=== PATIENT | male | born 1970 | race African-American/Black ===

== ENCOUNTER 2017-01-22 12:43 | Inpatient (IN) | payer BC ==
[2017-01-22 18:39] VITALS: BMI 25.4
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
[2017-01-22] MEDS ORDERED: MAGNESIUM CITRATE 300 ML BOTTLE PO PRN (19:27)
[2017-01-22] MEDS ORDERED: MAG HYDROX/AL HYDROX/SIMETH 30 ML UNIT-DOSE CUP PO PRN (19:27)
[2017-01-22] MEDS ORDERED: MAGNESIUM HYDROX 2400MG/30ML ORAL SUSPENSION 30 ML CUP PO PRN (19:27)
[2017-01-22] MEDS ORDERED: LOPERAMIDE HCL 2 MG CAPSULE PO PRN (19:27)
[2017-01-22] MEDS ORDERED: ACETAMINOPHEN 325 MG TABLET (FP) PO PRN (19:27)
[2017-01-22] MEDS ORDERED: MENTHOL/PHENOL 1 EACH UD MM PRN (19:27)
[2017-01-22] MEDS: RANITIDINE HCL 150 MG TABLET (FP) PO SCH (22:02)
[2017-01-22] MEDS: P-EPHED 60MG/TRIPROLIDI 2.5MG TABLET PO PRN (22:02)
[2017-01-22] MEDS: guaiFENesin/D-METHORPHAN HB 10 ML UNIT-DOSE CUPS PO PRN (22:02)
[2017-01-22] MEDS: THIAMINE HCL 100 MG TABLET (FP) PO SCH (22:02)
[2017-01-22] MEDS: diphenhydrAMINE HCL 50 MG CAPSULE PO PRN (22:02)
[2017-01-22] MEDS: chlordiazePOXIDE HCL 25 MG CAPSULE PO SCH (22:02)
[2017-01-22 23:13] LABS: URINE APPEARANCE CLEAR; URINE BILIRUBIN NEGATIVE (NEGATIVE); URINE BLOOD NEGATIVE (NEGATIVE); URINE COLOR YELLOW; URINE GLUCOSE (UA) NEGATIVE (NEGATIVE); URINE KETONE TRACE (NEGATIVE); URINE LEUK ESTERASE NEGATIVE (NEGATIVE); URINE NITRITE NEGATIVE (NEGATIVE); URINE PROTEIN NEGATIVE (NEGATIVE); URINE UROBILINOGEN NEGATIVE E.U./dl (0.2-1.0)
[2017-01-22] MEDS: TRIAMCINOLONE ACET 0.1% OINT 15 GM TUBE TP SCH (23:56)
[2017-01-23] MEDS: chlordiazePOXIDE HCL 25 MG CAPSULE PO SCH ×4 (05:55→22:54)
[2017-01-23] MEDS: P-EPHED 60MG/TRIPROLIDI 2.5MG TABLET PO PRN ×3 (05:57→17:34)
[2017-01-23] MEDS: guaiFENesin/D-METHORPHAN HB 10 ML UNIT-DOSE CUPS PO PRN ×4 (05:57→23:05)
[2017-01-23] MEDS: TRIAMCINOLONE ACET 0.1% OINT 15 GM TUBE TP SCH ×4 (10:14→22:56)
[2017-01-23] MEDS: RANITIDINE HCL 150 MG TABLET (FP) PO SCH ×2 (10:14→22:54)
[2017-01-23] MEDS: PRENATAL VITAMINS W/ FOLIC ACID TABLET (FP) PO SCH (10:14)
[2017-01-23 10:32] LABS: MCH 31.7 pg (25.7-33.7); MCHC 33.7 g/dl (32.0-35.9); MEAN CELL VOLUME 94.1 fl (80-96); MEAN PLT VOLUME 10.5 fl (7.5-11.1); PLATELET COUNT 206 K/MM3 (134-434); RDW 14.5 % (11.9-15.9); WHITE BLOOD COUNT 8.3 K/mm3 (4.0-10.0)
[2017-01-23 10:48] LABS: ALBUMIN 4.1 g/dl (3.4-5.0); BILIRUBIN,TOTAL 0.6 mg/dL (0.2-1.0); CALCIUM 9.4 mg/dL (8.5-10.1); CREATININE 1.3 mg/dL (0.7-1.3); TOT PROT 7.3 g/dl (6.4-8.2)
[2017-01-23 11:03] LABS: HIV 1 & 2 AB NEGATIVE; HIV 1 AGp24 NEGATIVE
--- NOTE | 2017-01-23 11:06 | EKG ---
Test Reason : Blood Pressure : / mmHG Vent. Rate : 084 BPM Atrial Rate : 084 BPM P-R Int : 140 ms QRS Dur : 084 ms QT Int : 376 ms P-R-T Axes : 082 039 059 degrees QTc Int : 444 ms NORMAL SINUS RHYTHM POSSIBLE LEFT ATRIAL ENLARGEMENT BORDERLINE ECG NO PREVIOUS ECGS AVAILABLE Confirmed by MANUEL CHICAS, NEMESIO ([id number]) on 01/23/2017 11:06:34 AM Referred By: Adilson Jha Confirmed By:NEMESIO JACKSON MD
[2017-01-23] MEDS: chlordiazePOXIDE HCL 25 MG CAPSULE PO PRN (12:11)
--- NOTE | 2017-01-23 12:38 | PN ---
BHS Progress Note (SOAP) Subjective: interrupted sleep, sweats shakes, sorethroat, nasal congestion and cough Objective: 01/23/17 12:35 Vital Signs Temperature 98.4 F 01/23/17 09:59 Pulse Rate 93 H 01/23/17 09:59 Respiratory Rate 18 01/23/17 09:59 Blood Pressure 130/95 01/23/17 09:59 O2 Sat by Pulse Oximetry (%) Laboratory Tests 01/22/17 01/23/17 01/23/17 22:50 06:00 06:00 WBC 8.3 RBC 4.65 Hgb 14.7 Hct 43.7 MCV 94.1 MCHC 33.7 RDW 14.5 Plt Count 206 MPV 10.5 Sodium 140 Potassium 4.0 Chloride 101 Carbon Dioxide 29 Anion Gap 10 BUN 13 Creatinine 1.3 Creat Clearance w eGFR 59.70 Random Glucose 123 H D Calcium 9.4 Total Bilirubin 0.6 D AST 50 H D ALT 48 D Alkaline Phosphatase 64 Total Protein 7.3 Albumin 4.1 D Urine Color Yellow Urine Appearance Clear Urine pH 5.0 Ur Specific [place] 1.025 Urine Protein Negative Urine Glucose (UA) Negative Urine Ketones Trace H Urine Blood Negative Urine Nitrite Negative Urine Bilirubin Negative Urine Urobilinogen Negative Ur Leukocyte Esterase Negative RPR Titer HIV 1&2 Antibody Screen HIV P24 Antigen 01/23/17 01/23/17 06:00 06:00 WBC RBC Hgb Hct MCV MCHC RDW Plt Count MPV Sodium Potassium Chloride Carbon Dioxide Anion Gap BUN Creatinine Creat Clearance w eGFR Random Glucose Calcium Total Bilirubin AST ALT Alkaline Phosphatase Total Protein Albumin Urine Color Urine Appearance Urine pH Ur Specific [place] Urine Protein Urine Glucose (UA) Urine Ketones Urine Blood Urine Nitrite Urine Bilirubin Urine Urobilinogen Ur Leukocyte Esterase RPR Titer Nonreactive HIV 1&2 Antibody Screen Negative HIV P24 Antigen Negative pt aox3 lying in bed with nasal congestion and cough Assessment: 01/23/17 12:36 withdrawal sx' cough , nasal congestion and sore throat r/o viral synd Plan: cont. detox increase fluids cxr flonase motrin prn
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
--- NOTE | 2017-01-23 17:47 | PN ---
BHS Progress Note Note: cxr- negative
[2017-01-23] MEDS: THIAMINE HCL 100 MG TABLET (FP) PO SCH (22:54)
[2017-01-23] MEDS: QUEtiapine FUMARATE 400 MG TABLET PO SCH (22:54)
[2017-01-23] MEDS: FLUTICASONE PROP 0.05% 16 GM NASAL SPRAY NS SCH (22:55)
[2017-01-24] MEDS: chlordiazePOXIDE HCL 25 MG CAPSULE PO SCH ×3 (05:00→17:58)
[2017-01-24] MEDS: FLUTICASONE PROP 0.05% 16 GM NASAL SPRAY NS SCH ×2 (10:31→23:22)
[2017-01-24] MEDS: TRIAMCINOLONE ACET 0.1% OINT 15 GM TUBE TP SCH ×4 (10:31→23:22)
[2017-01-24] MEDS: RANITIDINE HCL 150 MG TABLET (FP) PO SCH ×2 (10:32→22:49)
[2017-01-24] MEDS: PRENATAL VITAMINS W/ FOLIC ACID TABLET (FP) PO SCH (10:32)
--- NOTE | 2017-01-24 11:11 | PN ---
S CIWA - CIWA Score Nausea/Vomitin-No Nausea/No Vomiting Muscle Tremors: 4-Moderate,w/Arms Extend Anxiety: 3 Agitation: 3 Paroxysmal Sweats: 3 Orientation: 0-Oriented Tacttile Disturbances: 0-None Auditory Disturbances: 0-None Visual Disturbances: 0-None Headache: 0-None Present CIWA-Ar Total Score: 13 BHS Progress Note (SOAP) Subjective: shakes sweats irritable tired Objective: 01/24/17 11:14 Vital Signs Temperature 98.1 F 01/24/17 10:14 Pulse Rate 110 H 01/24/17 10:14 Respiratory Rate 16 01/24/17 10:14 Blood Pressure 101/64 01/24/17 10:14 O2 Sat by Pulse Oximetry (%) Laboratory Tests 01/22/17 01/22/17 01/23/17 06:00 22:50 06:00 WBC 8.3 RBC 4.65 Hgb 14.7 Hct 43.7 MCV 94.1 MCHC 33.7 RDW 14.5 Plt Count 206 MPV 10.5 Sodium Potassium Chloride Carbon Dioxide Anion Gap BUN Creatinine Creat Clearance w eGFR Random Glucose Calcium Total Bilirubin AST ALT Alkaline Phosphatase Total Protein Albumin Urine Color Yellow Urine Appearance Clear Urine pH 5.0 Ur Specific [place] 1.025 Urine Protein Negative Urine Glucose (UA) Negative Urine Ketones Trace H Urine Blood Negative Urine Nitrite Negative Urine Bilirubin Negative Urine Urobilinogen Negative Ur Leukocyte Esterase Negative RPR Titer Hepatitis C Antibody <0.1 HIV 1&2 Antibody Screen HIV P24 Antigen 01/23/17 01/23/17 01/23/17 06:00 06:00 06:00 WBC RBC Hgb Hct MCV MCHC RDW Plt Count MPV Sodium 140 Potassium 4.0 Chloride 101 Carbon Dioxide 29 Anion Gap 10 BUN 13 Creatinine 1.3 Creat Clearance w eGFR 59.70 Random Glucose 123 H D Calcium 9.4 Total Bilirubin 0.6 D AST 50 H D ALT 48 D Alkaline Phosphatase 64 Total Protein 7.3 Albumin 4.1 D Urine Color Urine Appearance Urine pH Ur Specific [place] Urine Protein Urine Glucose (UA) Urine Ketones Urine Blood Urine Nitrite Urine Bilirubin Urine Urobilinogen Ur Leukocyte Esterase RPR Titer Nonreactive Hepatitis C Antibody HIV 1&2 Antibody Screen Negative HIV P24 Antigen Negative awake/alert ambulating no acute distress Assessment: 01/24/17 11:15 withdrawal sx Plan: continue detox increase fluids
[2017-01-24] MEDS: chlordiazePOXIDE HCL 25 MG CAPSULE PO PRN (13:32)
[2017-01-24] MEDS: guaiFENesin/D-METHORPHAN HB 10 ML UNIT-DOSE CUPS PO PRN (17:58)
[2017-01-24] MEDS: chlordiazePOXIDE 5 MG CAPSULE PO SCH (22:49)
[2017-01-24] MEDS: QUEtiapine FUMARATE 400 MG TABLET PO SCH (22:49)
[2017-01-24] MEDS: THIAMINE HCL 100 MG TABLET (FP) PO SCH (22:49)
[2017-01-25] MEDS: chlordiazePOXIDE 5 MG CAPSULE PO SCH ×3 (06:02→17:43)
[2017-01-25] MEDS: P-EPHED 60MG/TRIPROLIDI 2.5MG TABLET PO PRN (07:04)
--- NOTE | 2017-01-25 10:13 | PN ---
S Progress Note (SOAP) Subjective: ALERT,IRRITABLE,INTERRUPTED SLEEP Objective: 01/25/17 10:12 Vital Signs Temperature 97.7 F 01/25/17 09:45 Pulse Rate 95 H 01/25/17 09:45 Respiratory Rate 16 01/25/17 09:45 Blood Pressure 126/77 01/25/17 09:45 O2 Sat by Pulse Oximetry (%) Assessment: 01/25/17 10:12 WITHDRAWAL SYMPTOM Plan: CONTINUE DETOX,INITIAL GLUCOSE 123,BGM MONITORING ,DISCHARGE IN AM
[2017-01-25] MEDS: RANITIDINE HCL 150 MG TABLET (FP) PO SCH ×2 (10:15→23:29)
[2017-01-25] MEDS: TRIAMCINOLONE ACET 0.1% OINT 15 GM TUBE TP SCH ×4 (10:15→23:30)
[2017-01-25] MEDS: FLUTICASONE PROP 0.05% 16 GM NASAL SPRAY NS SCH ×2 (10:15→23:29)
[2017-01-25] MEDS: PRENATAL VITAMINS W/ FOLIC ACID TABLET (FP) PO SCH (10:16)
[2017-01-25] MEDS: chlordiazePOXIDE HCL 10 MG CAPSULE PO SCH (23:28)
[2017-01-25] MEDS: THIAMINE HCL 100 MG TABLET (FP) PO SCH (23:29)
[2017-01-25] MEDS: QUEtiapine FUMARATE 400 MG TABLET PO SCH (23:29)
[2017-01-26] MEDS: diphenhydrAMINE HCL 50 MG CAPSULE PO PRN ×2 (00:21→01:09)
[2017-01-26] MEDS: chlordiazePOXIDE HCL 10 MG CAPSULE PO SCH ×2 (06:51→10:29)
--- NOTE | 2017-01-26 08:08 | PN ---
S Progress Note (SOAP) Subjective: ALERT,NO COMPLAINT Objective: 01/26/17 08:07 Vital Signs Temperature 98.3 F 01/26/17 06:37 Pulse Rate 78 01/26/17 06:37 Respiratory Rate 18 01/26/17 06:37 Blood Pressure 97/65 01/26/17 06:37 O2 Sat by Pulse Oximetry (%) Assessment: 01/26/17 08:07 DETOX COMPLETED.NO WITHDRAWAL SYMPTOM Plan: DISCHARGE TODAY,FOLLOW UP WITH AFTER CARE PROGRAM ARRANGEMENT
--- NOTE | 2017-01-26 08:13 | DS ---
[facility] Detox Discharge Summary Admission Date: 01/22/17 Discharge Date: 01/26/17 - History Present History: Alcohol Dependence, Cannabis Dependence, Cocaine Dependence Additional Comments: FOLLOW UP WITH AFTER CARE PROGRAM ARRANGEMENT AND PMD FOR MEDICAL PROBLEM Pertinent Past History: GERD - Physical Exam Results Vital Signs: Vital Signs Temperature 98.3 F 01/26/17 06:37 Pulse Rate 78 01/26/17 06:37 Respiratory Rate 18 01/26/17 06:37 Blood Pressure 97/65 01/26/17 06:37 O2 Sat by Pulse Oximetry (%) Pertinent Admission Physical Exam Findings: WITHDRAWAL SYMPTOM - Treatment Hospital Course: Detox Protocol Followed, Detoxed Safely, Responded well, Discharged Condition Good, Rehab Referral Accepted Patient has Accepted a Rehab Referral to: [facility] - Medication Discharge Medications: Ambulatory Orders Omeprazole [Prilosec] 40 mg PO DAILY #30 capsule.dr 02/28/16 Bupropion HCl [Wellbutrin Xl] 300 mg PO DAILY #30 tab.sr.24h 08/11/16 Quetiapine Fumarate [Seroquel -] 600 mg PO HS #60 tab 08/11/16 Bupropion HCl [Wellbutrin Xl] 300 mg PO DAILY #30 tab.er.24h 01/23/17 Quetiapine Fumarate [Seroquel -] 600 mg PO HS #60 tab 01/23/17 - Diagnosis (1) Alcohol dependence with uncomplicated withdrawal Current Visit: Yes Status: Acute (2) Cannabis dependence Current Visit: Yes Status: Acute (3) Nicotine dependence Current Visit: Yes Status: Acute Qualifiers: Nicotine product type: cigarettes Substance use status: in withdrawal Qualified Code(s): F17.213 - Nicotine dependence, cigarettes, with withdrawal (4) Bipolar disorder Current Visit: Yes Status: Chronic (5) Cocaine dependence Current Visit: Yes Status: Chronic Qualifiers: Substance use status: uncomplicated Qualified Code(s): F14.20 - Cocaine dependence, uncomplicated (6) GERD (gastroesophageal reflux disease) Current Visit: Yes Status: Chronic Qualifiers: Esophagitis presence: without esophagitis Qualified Code(s): K21.9 - Gastro-esophageal reflux disease without esophagitis (7) PPD positive, treated Current Visit: Yes Status: Chronic - AMA Did Patient Leave Against Medical Advice: No
[2017-01-26 10:09] VITALS: BP 140/83; PULSE 94; TEMP 98.1
[2017-01-26] MEDS: TRIAMCINOLONE ACET 0.1% OINT 15 GM TUBE TP SCH ×2 (10:28→14:57)
[2017-01-26] MEDS: RANITIDINE HCL 150 MG TABLET (FP) PO SCH (10:28)
[2017-01-26] MEDS: FLUTICASONE PROP 0.05% 16 GM NASAL SPRAY NS SCH (10:28)
[2017-01-26] MEDS: PRENATAL VITAMINS W/ FOLIC ACID TABLET (FP) PO SCH (10:28)
== END 2017-01-26 15:00 | disposition other institution (70) | DRG 774 ==
LOC: YASAS 12:43 → Y6N 18:51
PROVIDERS: ADMIT Internal Medicine Addiction Medicine; ATTEND Internal Medicine Addiction Medicine
PROC: HZ2ZZZZ Detoxification Services for Substance Abuse Treatment (ICD-10-PCS; principal; 2017-01-26)
DX: F10.230 Alcohol dependence with withdrawal, uncomplicated (principal); F14.20 Cocaine dependence, uncomplicated; F12.20 Cannabis dependence, uncomplicated; F17.210 Nicotine dependence, cigarettes, uncomplicated; F19.24 Other psychoactive substance dependence with psychoactive substance-induced mood disorder; F31.9 Bipolar disorder, unspecified; K21.9 Gastro-esophageal reflux disease without esophagitis; R63.4 Abnormal weight loss; Z68.25 Body mass index [BMI] 25.0-25.9, adult; R76.11 Nonspecific reaction to tuberculin skin test without active tuberculosis
CPT/HCPCS: 36415; 71020-TC; 80053; 81003; 85027; 86593; 87389; 93005; 93010

== ENCOUNTER 2017-01-26 15:08 | Inpatient (IN) | payer BC ==
[2017-01-26] MEDS ORDERED: MAG HYDROX/AL HYDROX/SIMETH 30 ML UNIT-DOSE CUP PO PRN (16:03)
[2017-01-26] MEDS ORDERED: LOPERAMIDE HCL 2 MG CAPSULE PO PRN (16:03)
[2017-01-26] MEDS ORDERED: NICOTINE POLACRILEX 2 MG GUM BUC PRN (16:03)
[2017-01-26] MEDS ORDERED: diphenhydrAMINE HCL 50 MG CAPSULE PO PRN (16:03)
[2017-01-26] MEDS ORDERED: IBUPROFEN 400 MG TABLET (FP) PO PRN (16:03)
[2017-01-26] MEDS ORDERED: MAGNESIUM CITRATE 300 ML BOTTLE PO PRN (16:03)
[2017-01-26] MEDS ORDERED: ACETAMINOPHEN 325 MG TABLET (FP) PO PRN (16:03)
[2017-01-26] MEDS ORDERED: P-EPHED 60MG/TRIPROLIDI 2.5MG TABLET PO PRN (16:03)
[2017-01-26] MEDS ORDERED: MAGNESIUM HYDROX 2400MG/30ML ORAL SUSPENSION 30 ML CUP PO PRN (16:03)
[2017-01-26] MEDS ORDERED: MENTHOL/PHENOL 1 EACH UD MM PRN (16:03)
--- NOTE | 2017-01-26 16:03 | HP ---
[facility] Rehab Assess/Revision - Admission History Admitted to Rehab from: [facility] Date of Admission to Rehab: 01/26/17 - Findings Detox History & Physical reviewed: Yes Concur with findings: Yes Comments/Additional Findings: transferred from detox to rehab admission as per protocol
[2017-01-26] MEDS ORDERED: NICOTINE 14 MG/24 HOURS TOPICAL PATCH TD PRN (16:58)
[2017-01-26] MEDS: QUEtiapine FUMARATE 300 MG TABLET PO SCH (22:12)
[2017-01-26] MEDS: THIAMINE HCL 100 MG TABLET (FP) PO SCH (22:12)
[2017-01-26] MEDS: FLUTICASONE PROP 0.05% 16 GM NASAL SPRAY NS SCH (22:13)
[2017-01-27] MEDS ORDERED: PT OWN MED DRAWER 7, Y5N ONE ×2 (08:55→21:46)
[2017-01-27] MEDS: FLUTICASONE PROP 0.05% 16 GM NASAL SPRAY NS SCH ×2 (09:58→21:46)
[2017-01-27] MEDS: PANTOPRAZOLE 40 MG TABLET (FP) PO SCH (09:59)
[2017-01-27] MEDS: PRENATAL VITAMINS W/ FOLIC ACID TABLET (FP) PO SCH (09:59)
[2017-01-27] MEDS ORDERED: PATIENT'S OWN MEDICATION (NON-FORMULARY) (Bupropion Hcl [Wellbutrin Xl] 300 MG) PO SCH (10:00)
[2017-01-27] MEDS: guaiFENesin/D-METHORPHAN HB 10 ML UNIT-DOSE CUPS PO PRN (10:01)
[2017-01-27] MEDS: THIAMINE HCL 100 MG TABLET (FP) PO SCH (21:45)
[2017-01-27] MEDS: QUEtiapine FUMARATE 300 MG TABLET PO SCH (21:45)
[2017-01-28] MEDS ORDERED: PT OWN MED DRAWER 7, Y5N ONE ×3 (08:55→21:21)
[2017-01-28] MEDS: PRENATAL VITAMINS W/ FOLIC ACID TABLET (FP) PO SCH (09:56)
[2017-01-28] MEDS: PANTOPRAZOLE 40 MG TABLET (FP) PO SCH (09:56)
[2017-01-28] MEDS: FLUTICASONE PROP 0.05% 16 GM NASAL SPRAY NS SCH ×2 (09:56→21:21)
[2017-01-28] MEDS: TRIAMCINOLONE ACET 0.1% OINT 15 GM TUBE TP SCH ×2 (17:47→21:20)
[2017-01-28] MEDS: THIAMINE HCL 100 MG TABLET (FP) PO SCH (21:20)
[2017-01-28] MEDS: QUEtiapine FUMARATE 300 MG TABLET PO SCH (21:20)
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
[2017-01-29] MEDS: PANTOPRAZOLE 40 MG TABLET (FP) PO SCH (10:19)
[2017-01-29] MEDS: PRENATAL VITAMINS W/ FOLIC ACID TABLET (FP) PO SCH (10:19)
[2017-01-29] MEDS: TRIAMCINOLONE ACET 0.1% OINT 15 GM TUBE TP SCH ×4 (10:20→22:30)
[2017-01-29] MEDS: FLUTICASONE PROP 0.05% 16 GM NASAL SPRAY NS SCH ×2 (10:20→22:30)
[2017-01-29] MEDS ORDERED: PT OWN MED DRAWER 7, Y5N ONE ×3 (14:42→19:57)
[2017-01-29] MEDS: QUEtiapine FUMARATE 300 MG TABLET PO SCH (21:38)
[2017-01-29] MEDS: THIAMINE HCL 100 MG TABLET (FP) PO SCH (21:38)
[2017-01-30] MEDS ORDERED: PT OWN MED DRAWER 7, Y5N ONE ×3 (09:03→21:39)
[2017-01-30] MEDS: FLUTICASONE PROP 0.05% 16 GM NASAL SPRAY NS SCH ×2 (10:00→21:39)
[2017-01-30] MEDS: PRENATAL VITAMINS W/ FOLIC ACID TABLET (FP) PO SCH (10:38)
[2017-01-30] MEDS: PANTOPRAZOLE 40 MG TABLET (FP) PO SCH (10:38)
[2017-01-30] MEDS: TRIAMCINOLONE ACET 0.1% OINT 15 GM TUBE TP SCH ×4 (10:40→21:38)
[2017-01-30] MEDS: THIAMINE HCL 100 MG TABLET (FP) PO SCH (21:38)
[2017-01-30] MEDS: QUEtiapine FUMARATE 300 MG TABLET PO SCH (21:38)
[2017-01-31] MEDS: PANTOPRAZOLE 40 MG TABLET (FP) PO SCH (10:01)
[2017-01-31] MEDS: PRENATAL VITAMINS W/ FOLIC ACID TABLET (FP) PO SCH (10:01)
[2017-01-31] MEDS: TRIAMCINOLONE ACET 0.1% OINT 15 GM TUBE TP SCH ×4 (10:02→21:42)
[2017-01-31] MEDS: FLUTICASONE PROP 0.05% 16 GM NASAL SPRAY NS SCH ×2 (10:02→21:43)
[2017-01-31] MEDS ORDERED: PT OWN MED DRAWER 7, Y5N ONE ×2 (10:03→20:27)
[2017-01-31] MEDS: guaiFENesin/D-METHORPHAN HB 10 ML UNIT-DOSE CUPS PO PRN (10:03)
[2017-01-31] MEDS: THIAMINE HCL 100 MG TABLET (FP) PO SCH (21:43)
[2017-01-31] MEDS: QUEtiapine FUMARATE 300 MG TABLET PO SCH (21:43)
[2017-02-01] MEDS: guaiFENesin/D-METHORPHAN HB 10 ML UNIT-DOSE CUPS PO PRN (07:44)
[2017-02-01] MEDS: PANTOPRAZOLE 40 MG TABLET (FP) PO SCH (10:16)
[2017-02-01] MEDS: PRENATAL VITAMINS W/ FOLIC ACID TABLET (FP) PO SCH (10:16)
[2017-02-01] MEDS: FLUTICASONE PROP 0.05% 16 GM NASAL SPRAY NS SCH ×2 (10:17→21:12)
[2017-02-01] MEDS: TRIAMCINOLONE ACET 0.1% OINT 15 GM TUBE TP SCH ×4 (10:17→21:12)
[2017-02-01] MEDS ORDERED: PT OWN MED DRAWER 7, Y5N ONE ×2 (17:47→21:13)
[2017-02-01] MEDS: THIAMINE HCL 100 MG TABLET (FP) PO SCH (21:11)
[2017-02-01] MEDS: QUEtiapine FUMARATE 300 MG TABLET PO SCH (21:11)
[2017-02-02] MEDS: PANTOPRAZOLE 40 MG TABLET (FP) PO SCH (10:24)
[2017-02-02] MEDS: PRENATAL VITAMINS W/ FOLIC ACID TABLET (FP) PO SCH (10:24)
[2017-02-02] MEDS: FLUTICASONE PROP 0.05% 16 GM NASAL SPRAY NS SCH ×2 (10:26→21:21)
[2017-02-02] MEDS: TRIAMCINOLONE ACET 0.1% OINT 15 GM TUBE TP SCH ×4 (10:26→21:22)
--- NOTE | 2017-02-02 14:45 | PN ---
S Progress Note Note: PATIENT COMPLAINED OF HEADACHE,NO HISTORY OF HTN BP 155/99 WILL GIVE CLONIDINE 0.1 MG PO NOW THEN 0.1 MG PO BID FOR 3 DAYS WITHDRAWAL SYMPTOM BP MONITORING
[2017-02-02] MEDS ORDERED: cloNIDine HCL 0.1 MG TABLET PO ONE (15:27)
[2017-02-02] MEDS: hydrOXYzine PAMOATE 50 MG CAPSULE (FP) PO PRN (17:15)
[2017-02-02] MEDS: QUEtiapine FUMARATE 300 MG TABLET PO SCH (21:21)
[2017-02-02] MEDS: THIAMINE HCL 100 MG TABLET (FP) PO SCH (21:21)
[2017-02-02] MEDS: cloNIDine HCL 0.1 MG TABLET PO SCH (21:21)
[2017-02-02] MEDS ORDERED: PT OWN MED DRAWER 7, Y5N ONE (21:23)
[2017-02-03] MEDS: PRENATAL VITAMINS W/ FOLIC ACID TABLET (FP) PO SCH (10:12)
[2017-02-03] MEDS: FLUTICASONE PROP 0.05% 16 GM NASAL SPRAY NS SCH ×2 (10:12→21:56)
[2017-02-03] MEDS: PANTOPRAZOLE 40 MG TABLET (FP) PO SCH (10:12)
[2017-02-03] MEDS: cloNIDine HCL 0.1 MG TABLET PO SCH ×2 (10:12→21:56)
[2017-02-03] MEDS: TRIAMCINOLONE ACET 0.1% OINT 15 GM TUBE TP SCH ×4 (10:14→22:04)
[2017-02-03] MEDS: QUEtiapine FUMARATE 300 MG TABLET PO SCH (21:55)
[2017-02-03] MEDS: THIAMINE HCL 100 MG TABLET (FP) PO SCH (21:56)
[2017-02-04] MEDS ORDERED: PT OWN MED DRAWER 7, Y5N ONE (09:09)
[2017-02-04] MEDS: PANTOPRAZOLE 40 MG TABLET (FP) PO SCH (10:10)
[2017-02-04] MEDS: PRENATAL VITAMINS W/ FOLIC ACID TABLET (FP) PO SCH (10:10)
[2017-02-04] MEDS: FLUTICASONE PROP 0.05% 16 GM NASAL SPRAY NS SCH ×2 (10:10→21:39)
[2017-02-04] MEDS: cloNIDine HCL 0.1 MG TABLET PO SCH ×2 (10:10→21:40)
[2017-02-04] MEDS: TRIAMCINOLONE ACET 0.1% OINT 15 GM TUBE TP SCH ×4 (10:11→21:40)
[2017-02-04] MEDS: THIAMINE HCL 100 MG TABLET (FP) PO SCH (21:40)
[2017-02-04] MEDS: QUEtiapine FUMARATE 300 MG TABLET PO SCH (21:40)
[2017-02-05] MEDS ORDERED: PT OWN MED DRAWER 7, Y5N ONE ×2 (09:13→10:46)
[2017-02-05] MEDS: PRENATAL VITAMINS W/ FOLIC ACID TABLET (FP) PO SCH (10:43)
[2017-02-05] MEDS: TRIAMCINOLONE ACET 0.1% OINT 15 GM TUBE TP SCH ×4 (10:44→21:40)
[2017-02-05] MEDS: PANTOPRAZOLE 40 MG TABLET (FP) PO SCH (10:44)
[2017-02-05] MEDS: FLUTICASONE PROP 0.05% 16 GM NASAL SPRAY NS SCH ×2 (10:44→21:40)
[2017-02-05] MEDS: hydrOXYzine PAMOATE 50 MG CAPSULE (FP) PO PRN (21:40)
[2017-02-05] MEDS: THIAMINE HCL 100 MG TABLET (FP) PO SCH (21:40)
[2017-02-05] MEDS: QUEtiapine FUMARATE 300 MG TABLET PO SCH (21:40)
[2017-02-06] MEDS ORDERED: PT OWN MED DRAWER 7, Y5N ONE ×2 (09:02→21:18)
[2017-02-06] MEDS: FLUTICASONE PROP 0.05% 16 GM NASAL SPRAY NS SCH ×2 (10:37→21:18)
[2017-02-06] MEDS: PANTOPRAZOLE 40 MG TABLET (FP) PO SCH (10:37)
[2017-02-06] MEDS: PRENATAL VITAMINS W/ FOLIC ACID TABLET (FP) PO SCH (10:37)
[2017-02-06] MEDS: TRIAMCINOLONE ACET 0.1% OINT 15 GM TUBE TP SCH ×4 (10:37→21:18)
[2017-02-06] MEDS: QUEtiapine FUMARATE 300 MG TABLET PO SCH (21:17)
[2017-02-06] MEDS: THIAMINE HCL 100 MG TABLET (FP) PO SCH (21:17)
[2017-02-07] MEDS: PANTOPRAZOLE 40 MG TABLET (FP) PO SCH (10:18)
[2017-02-07] MEDS: PRENATAL VITAMINS W/ FOLIC ACID TABLET (FP) PO SCH (10:18)
[2017-02-07] MEDS: FLUTICASONE PROP 0.05% 16 GM NASAL SPRAY NS SCH ×2 (10:18→21:41)
[2017-02-07] MEDS: TRIAMCINOLONE ACET 0.1% OINT 15 GM TUBE TP SCH ×4 (10:19→21:40)
[2017-02-07] MEDS ORDERED: amLODIPine BESYLATE 5 MG TABLET (FP) PO ONE (15:45)
[2017-02-07] MEDS: hydrOXYzine PAMOATE 50 MG CAPSULE (FP) PO PRN (20:14)
[2017-02-07] MEDS: QUEtiapine FUMARATE 300 MG TABLET PO SCH (21:39)
[2017-02-07] MEDS: THIAMINE HCL 100 MG TABLET (FP) PO SCH (21:39)
[2017-02-07] MEDS ORDERED: PT OWN MED DRAWER 7, Y5N ONE (21:40)
[2017-02-08] MEDS: PANTOPRAZOLE 40 MG TABLET (FP) PO SCH (10:21)
[2017-02-08] MEDS: amLODIPine BESYLATE 5 MG TABLET (FP) PO SCH (10:21)
[2017-02-08] MEDS: PRENATAL VITAMINS W/ FOLIC ACID TABLET (FP) PO SCH (10:21)
[2017-02-08] MEDS: FLUTICASONE PROP 0.05% 16 GM NASAL SPRAY NS SCH ×2 (10:22→21:41)
[2017-02-08] MEDS: TRIAMCINOLONE ACET 0.1% OINT 15 GM TUBE TP SCH ×4 (10:22→21:41)
[2017-02-08] MEDS: hydrOXYzine PAMOATE 50 MG CAPSULE (FP) PO PRN (10:22)
--- NOTE | 2017-02-08 14:42 | PN ---
S Progress Note Note: Received call from patient'medical insurance coverage yesterday about discussing with patient medication to help him with craving for alcohol.Met with patient to discuss medication to help him with craving for alcohol. He told medical underwriter that he is already taking a lot of medication and has no need to take medication for that purpose since he does crave for alcohol. He was at some point getting angry at medical underwriter believing that he was putting pressure on him to take medication. He was reassured that it was not the case and he does not have to take any medication if he does not want to. He was only presented with an option and it was up to him to make a decision
[2017-02-08] MEDS: QUEtiapine FUMARATE 300 MG TABLET PO SCH (21:40)
[2017-02-08] MEDS: THIAMINE HCL 100 MG TABLET (FP) PO SCH (21:40)
[2017-02-08] MEDS ORDERED: PT OWN MED DRAWER 7, Y5N ONE (21:41)
[2017-02-09] MEDS: FLUTICASONE PROP 0.05% 16 GM NASAL SPRAY NS SCH ×2 (10:29→21:54)
[2017-02-09] MEDS: PRENATAL VITAMINS W/ FOLIC ACID TABLET (FP) PO SCH (10:30)
[2017-02-09] MEDS: PANTOPRAZOLE 40 MG TABLET (FP) PO SCH (10:30)
[2017-02-09] MEDS: amLODIPine BESYLATE 5 MG TABLET (FP) PO SCH (10:30)
[2017-02-09] MEDS: TRIAMCINOLONE ACET 0.1% OINT 15 GM TUBE TP SCH ×4 (10:31→21:54)
[2017-02-09] MEDS: QUEtiapine FUMARATE 300 MG TABLET PO SCH (21:52)
[2017-02-09] MEDS: THIAMINE HCL 100 MG TABLET (FP) PO SCH (21:52)
[2017-02-09] MEDS ORDERED: PT OWN MED DRAWER 7, Y5N ONE ×2 (21:53→22:38)
[2017-02-10] MEDS ORDERED: PT OWN MED DRAWER 7, Y5N ONE ×4 (09:28→21:42)
[2017-02-10] MEDS: FLUTICASONE PROP 0.05% 16 GM NASAL SPRAY NS SCH ×2 (10:35→21:42)
[2017-02-10] MEDS: TRIAMCINOLONE ACET 0.1% OINT 15 GM TUBE TP SCH ×4 (10:35→21:42)
[2017-02-10] MEDS: PANTOPRAZOLE 40 MG TABLET (FP) PO SCH (10:36)
[2017-02-10] MEDS: PRENATAL VITAMINS W/ FOLIC ACID TABLET (FP) PO SCH (10:37)
[2017-02-10] MEDS: amLODIPine BESYLATE 5 MG TABLET (FP) PO SCH (10:37)
[2017-02-10] MEDS: QUEtiapine FUMARATE 300 MG TABLET PO SCH (21:41)
[2017-02-10] MEDS: THIAMINE HCL 100 MG TABLET (FP) PO SCH (21:41)
[2017-02-11] MEDS ORDERED: PT OWN MED DRAWER 7, Y5N ONE ×2 (08:54→21:26)
[2017-02-11] MEDS: FLUTICASONE PROP 0.05% 16 GM NASAL SPRAY NS SCH ×2 (10:00→21:27)
[2017-02-11] MEDS: TRIAMCINOLONE ACET 0.1% OINT 15 GM TUBE TP SCH ×4 (10:00→21:27)
[2017-02-11] MEDS: PANTOPRAZOLE 40 MG TABLET (FP) PO SCH (10:00)
[2017-02-11] MEDS: amLODIPine BESYLATE 5 MG TABLET (FP) PO SCH (10:00)
[2017-02-11] MEDS: PRENATAL VITAMINS W/ FOLIC ACID TABLET (FP) PO SCH (10:00)
[2017-02-11] MEDS: THIAMINE HCL 100 MG TABLET (FP) PO SCH (21:25)
[2017-02-11] MEDS: QUEtiapine FUMARATE 300 MG TABLET PO SCH (21:26)
[2017-02-12] MEDS: TRIAMCINOLONE ACET 0.1% OINT 15 GM TUBE TP SCH ×4 (10:33→22:05)
[2017-02-12] MEDS: PRENATAL VITAMINS W/ FOLIC ACID TABLET (FP) PO SCH (10:33)
[2017-02-12] MEDS: PANTOPRAZOLE 40 MG TABLET (FP) PO SCH (10:33)
[2017-02-12] MEDS: amLODIPine BESYLATE 5 MG TABLET (FP) PO SCH (10:33)
[2017-02-12] MEDS: FLUTICASONE PROP 0.05% 16 GM NASAL SPRAY NS SCH ×2 (10:34→22:06)
[2017-02-12] MEDS ORDERED: PT OWN MED DRAWER 7, Y5N ONE (20:51)
[2017-02-12] MEDS: QUEtiapine FUMARATE 300 MG TABLET PO SCH (22:06)
[2017-02-12] MEDS: THIAMINE HCL 100 MG TABLET (FP) PO SCH (22:07)
[2017-02-13] MEDS: PANTOPRAZOLE 40 MG TABLET (FP) PO SCH (10:35)
[2017-02-13] MEDS: TRIAMCINOLONE ACET 0.1% OINT 15 GM TUBE TP SCH ×4 (10:35→22:26)
[2017-02-13] MEDS: amLODIPine BESYLATE 5 MG TABLET (FP) PO SCH (10:35)
[2017-02-13] MEDS: PRENATAL VITAMINS W/ FOLIC ACID TABLET (FP) PO SCH (10:35)
[2017-02-13] MEDS: FLUTICASONE PROP 0.05% 16 GM NASAL SPRAY NS SCH ×2 (10:36→21:51)
[2017-02-13] MEDS ORDERED: PT OWN MED DRAWER 7, Y5N ONE ×2 (15:19→21:51)
[2017-02-13] MEDS: QUEtiapine FUMARATE 300 MG TABLET PO SCH (21:50)
[2017-02-13] MEDS: THIAMINE HCL 100 MG TABLET (FP) PO SCH (21:50)
[2017-02-14] MEDS: amLODIPine BESYLATE 5 MG TABLET (FP) PO SCH (10:18)
[2017-02-14] MEDS: PRENATAL VITAMINS W/ FOLIC ACID TABLET (FP) PO SCH (10:18)
[2017-02-14] MEDS: PANTOPRAZOLE 40 MG TABLET (FP) PO SCH (10:18)
[2017-02-14] MEDS: TRIAMCINOLONE ACET 0.1% OINT 15 GM TUBE TP SCH ×4 (10:19→22:15)
[2017-02-14] MEDS: FLUTICASONE PROP 0.05% 16 GM NASAL SPRAY NS SCH ×2 (10:19→22:15)
[2017-02-14] MEDS: THIAMINE HCL 100 MG TABLET (FP) PO SCH (22:14)
[2017-02-14] MEDS: QUEtiapine FUMARATE 300 MG TABLET PO SCH (22:14)
[2017-02-15] MEDS ORDERED: PT OWN MED DRAWER 7, Y5N ONE ×4 (09:00→21:46)
[2017-02-15] MEDS: amLODIPine BESYLATE 5 MG TABLET (FP) PO SCH (10:25)
[2017-02-15] MEDS: PRENATAL VITAMINS W/ FOLIC ACID TABLET (FP) PO SCH (10:26)
[2017-02-15] MEDS: PANTOPRAZOLE 40 MG TABLET (FP) PO SCH (10:26)
[2017-02-15] MEDS: FLUTICASONE PROP 0.05% 16 GM NASAL SPRAY NS SCH ×2 (10:26→21:44)
[2017-02-15] MEDS: TRIAMCINOLONE ACET 0.1% OINT 15 GM TUBE TP SCH ×4 (10:27→21:45)
--- NOTE | 2017-02-15 14:08 | PN ---
Psychiatric Progress Note Vital Signs: Vital Signs Period Temp Pulse Resp BP Sys/Brennan Pulse Ox Last 24 Hr 98.3 F 84-109 18-18 124-139/80-80 Date of Session: 02/15/17 Chief Complaint:: Psychiatrist Discharge Note HPI: Patient addressing Alcohol and Cannabis Dependence comorbid with Nicotine Dependence and Bipolar Disorder ROS: GERD, dry skin dermatitis were medically managed Current Medications: Active Medications Generic Name Dose Route Start Last Admin Trade Name Freq PRN Reason Stop Dose Admin Acetaminophen 650 mg 01/26/17 16:03 02/02/17 17:15 Tylenol - PO 650 mg Q4H PRN Administration FEVER OR PAIN Al Hydroxide/Mg Hydroxide 30 ml 01/26/17 16:03 Mylanta Oral Suspension - PO Q6H PRN DYSPEPSIA Amlodipine Besylate 5 mg 02/08/17 10:00 02/15/17 10:25 Norvasc - PO 5 mg DAILY PATY Administration Bupropion HCl 300 mg 01/27/17 10:00 02/15/17 10:25 Wellbutrin Xl - PO 300 mg DAILY PATY Administration Diphenhydramine HCl 50 mg 01/26/17 16:03 Benadryl - PO HSMR1 PRN FOR ITCHING Eucalyptus/Menthol/Phenol/Sorbitol 1 each 01/26/17 16:03 Cepastat Lozenge - MM Q4H PRN SORE THROAT Fluticasone Propionate 1 spray 01/26/17 22:00 02/15/17 10:26 Flonase - NS 1 spray BID PATY Administration Guaifenesin 10 ml 01/26/17 16:03 02/01/17 07:44 Robitussin Dm - PO 10 ml Q6H PRN Administration COUGH Hydroxyzine Pamoate 50 mg 01/26/17 16:03 02/08/17 10:22 Vistaril - PO 50 mg Q4H PRN Administration AGITATION Ibuprofen 400 mg 01/26/17 16:03 Motrin - PO Q6H PRN PAIN Loperamide HCl 4 mg 01/26/17 16:03 Imodium - PO Q6H PRN DIARRHEA Magnesium Hydroxide 30 ml 01/26/17 16:03 Milk Of Magnesia - PO DAILY PRN CONSTIPATION Nicotine 14 mg 01/26/17 16:58 Nicoderm Patch - TD DAILY PRN WITHDRAWAL(CONT SUBST) Nicotine Polacrilex 2 mg 01/26/17 16:03 Nicorette Gum - BUC Q2H PRN NICOTINE REPLACEMENT RX Pantoprazole Sodium 40 mg 01/27/17 10:00 02/15/17 10:26 Protonix - PO 40 mg DAILY PATY Administration Multivit/Folic Acid/Iron 1 tab 01/27/17 10:00 02/15/17 10:26 Vitamins (Sjr) - PO 1 tab DAILY PATY Administration Pseudoephedrine/Triprolidine 1 combo 01/26/17 16:03 01/30/17 06:31 Actifed - PO 1 combo TID PRN Administration NASAL CONGESTION Quetiapine Fumarate 600 mg 01/26/17 22:00 02/14/17 22:14 Seroquel - PO 600 mg HS PATY Administration Thiamine HCl 100 mg 01/26/17 22:00 02/14/17 22:14 Vitamin B1 - PO 100 mg HS PATY Administration Triamcinolone Acetonide 1 applic 01/28/17 18:00 02/15/17 10:27 Aristocort 0.1% Ointment - TP Not Given QID PATY Current Side Effect: No Lab tests ordered: Yes Lab tests reviewed: Yes Provider note:: Patient will complete this program on 02/16/17. He has met his treatment goals and will continue to address his issues at [facility] for substance abuse and [facility] for mental health. Told filing writer that from his participation in this program, he has learned identify his triggers and to avoid them in term of People, Places and Things. He responded well to Wellbutrin XL 300 mg po daily and Seroquel 600 mg po HS. Scripts for 30 days supply of medications will be electronically transmitted to [facility] at [address] [place] [address]. He is stable for discharge on 02/16/17 Total face to face time:: 35 Mental Status Exam - Mental Status Exam Alert and Oriented to: Time, Place, Person Cognitive Function: Fair Patient Appearance: Well Groomed Mood: Hopeful, Euthymic Affect: Appropriate Patient Behavior: Cooperative Speech Pattern: Clear Voice Loudness: Normal Thought Process: Intact, Goal Oriented Thought Disorder: Not Present Hallucinations: Denies Suicidal Ideation: Denies, Past, Plan Homicidal Ideation: Denies Insight/Judgement: Fair Sleep: Fair Appetite: Good Muscle strength/Tone: Normal Gait/Station: Normal Psychiatric Treatment Plan - Problem List (1) Alcohol dependence with uncomplicated withdrawal Current Visit: No (2) Cannabis dependence Current Visit: No (3) Nicotine dependence Current Visit: No Qualifiers: Nicotine product type: cigarettes Substance use status: in withdrawal Qualified Code(s): F17.213 - Nicotine dependence, cigarettes, with withdrawal Comment: . (4) Bipolar disorder Current Visit: No Comment: Self-report. (5) Dry skin dermatitis Current Visit: No (6) GERD (gastroesophageal reflux disease) Current Visit: No Qualifiers: Esophagitis presence: without esophagitis Qualified Code(s): K21.9 - Gastro-esophageal reflux disease without esophagitis Comment: . Initial treatment plan: Patient will be discharged tomorrow and referred to [facility] for addiction and [facility] for mental health services
[2017-02-15] MEDS: THIAMINE HCL 100 MG TABLET (FP) PO SCH (21:44)
[2017-02-15] MEDS: QUEtiapine FUMARATE 300 MG TABLET PO SCH (21:44)
[2017-02-16 08:34] VITALS: BP 137/87; PULSE 88; TEMP 98.4
[2017-02-16] MEDS: PRENATAL VITAMINS W/ FOLIC ACID TABLET (FP) PO SCH (09:33)
[2017-02-16] MEDS: amLODIPine BESYLATE 5 MG TABLET (FP) PO SCH (09:33)
[2017-02-16] MEDS: PANTOPRAZOLE 40 MG TABLET (FP) PO SCH (09:33)
[2017-02-16] MEDS ORDERED: PT OWN MED DRAWER 7, Y5N ONE (09:35)
[2017-02-16] MEDS: TRIAMCINOLONE ACET 0.1% OINT 15 GM TUBE TP SCH (09:35)
[2017-02-16] MEDS: FLUTICASONE PROP 0.05% 16 GM NASAL SPRAY NS SCH (09:35)
== END 2017-02-16 10:00 | disposition home or self-care (01) | DRG 772 ==
LOC: YASAS 15:08 → Y3W 15:09
PROVIDERS: ADMIT Psychiatry & Neurology Psychiatry; ATTEND Psychiatry & Neurology Psychiatry
PROC: HZ42ZZZ Group Counseling for Substance Abuse Treatment, Cognitive-Behavioral (ICD-10-PCS; principal; 2017-01-26)
DX: F10.20 Alcohol dependence, uncomplicated (principal); F12.20 Cannabis dependence, uncomplicated; F17.210 Nicotine dependence, cigarettes, uncomplicated; F31.9 Bipolar disorder, unspecified; K21.9 Gastro-esophageal reflux disease without esophagitis; L85.3 Xerosis cutis

== ENCOUNTER 2017-12-25 13:10 | Inpatient (IN) | payer BC ==
[2017-12-25 14:40] VITALS: BMI 28.8
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
[2017-12-25] MEDS ORDERED: MAG HYDROX/AL HYDROX/SIMETH 30 ML UNIT-DOSE CUP PO PRN (15:43)
[2017-12-25] MEDS ORDERED: P-EPHED 60MG/TRIPROLIDI 2.5MG TABLET PO PRN (15:43)
[2017-12-25] MEDS ORDERED: LOPERAMIDE HCL 2 MG CAPSULE PO PRN (15:43)
[2017-12-25] MEDS ORDERED: ACETAMINOPHEN 325 MG TABLET (FP) PO PRN (15:43)
[2017-12-25] MEDS ORDERED: MAGNESIUM CITRATE 300 ML BOTTLE PO PRN (15:43)
[2017-12-25] MEDS ORDERED: guaiFENesin/D-METHORPHAN HB 10 ML UNIT-DOSE CUPS PO PRN (15:43)
[2017-12-25] MEDS ORDERED: MAGNESIUM HYDROX 2400MG/30ML ORAL SUSPENSION 30 ML CUP PO PRN (15:43)
[2017-12-25] MEDS ORDERED: MENTHOL/PHENOL 1 EACH UD MM PRN (15:43)
[2017-12-25] MEDS ORDERED: PREGABALIN PO SCH (15:45)
[2017-12-25] MEDS ORDERED: ONDANSETRON *ODT* 4 MG TABLET SL ONE (18:15)
[2017-12-25] MEDS: chlordiazePOXIDE HCL 25 MG CAPSULE PO PRN (20:11)
[2017-12-25] MEDS ORDERED: PREGABALIN 50 MG CAPSULE PO SCH (22:00)
[2017-12-25] MEDS: chlordiazePOXIDE HCL 25 MG CAPSULE PO SCH (22:51)
[2017-12-25] MEDS: THIAMINE HCL 100 MG TABLET (FP) PO SCH (22:51)
[2017-12-25 23:20] LABS: URINE APPEARANCE TURBID; URINE BILIRUBIN NEGATIVE (NEGATIVE); URINE BLOOD NEGATIVE (NEGATIVE); URINE COLOR YELLOW; URINE GLUCOSE (UA) NEGATIVE (NEGATIVE); URINE KETONE TRACE (NEGATIVE); URINE LEUK ESTERASE NEGATIVE (NEGATIVE); URINE NITRITE NEGATIVE (NEGATIVE)
[2017-12-25 23:27] LABS: URINE PROTEIN 1+ (NEGATIVE)
[2017-12-25 23:34] LABS: EPI CELLS RARE /HPF (FEW); URINE MUCUS MANY
[2017-12-26] MEDS ORDERED: PREGABALIN 50 MG CAPSULE PO SCH (01:00)
[2017-12-26] MEDS: chlordiazePOXIDE HCL 25 MG CAPSULE PO SCH ×4 (05:57→22:36)
--- NOTE | 2017-12-26 09:51 | EKG ---
Test Reason : Blood Pressure : / mmHG Vent. Rate : 085 BPM Atrial Rate : 085 BPM P-R Int : 144 ms QRS Dur : 082 ms QT Int : 392 ms P-R-T Axes : 067 029 040 degrees QTc Int : 466 ms NORMAL SINUS RHYTHM RIGHT ATRIAL ENLARGEMENT BORDERLINE ECG WHEN COMPARED WITH ECG OF 22-JAN-2017 20:54, NO SIGNIFICANT CHANGE WAS FOUND Confirmed by VLADIMIR BAIN MD ([id number]) on 12/26/2017 9:51:31 AM Referred By: Confirmed By:VLADIMIR BAIN MD
[2017-12-26] MEDS ORDERED: PATIENT'S OWN MEDICATION (NON-FORMULARY) (Amlodipine Besylate [Norvasc -] 10 MG) PO SCH (10:00)
[2017-12-26] MEDS ORDERED: PANTOPRAZOLE 40 MG TABLET (FP) PO SCH (10:00)
[2017-12-26] MEDS ORDERED: RIVAROXABAN 20 MG TABLET PO SCH (10:00)
[2017-12-26] MEDS ORDERED: RIVAROXABAN PO SCH (10:00)
[2017-12-26] MEDS ORDERED: CALCIUM CARBONATE 500 MG PO SCH (10:00)
[2017-12-26] MEDS ORDERED: PATIENT'S OWN MEDICATION (NON-FORMULARY) (Omeprazole [Omeprazole] 40 MG) PO SCH (10:00)
[2017-12-26 10:24] LABS: HEMATOCRIT 43.6 % (35.4-49); HEMOGLOBIN 14.4 GM/dL (11.7-16.9); MEAN PLT VOLUME 9.2 fl (7.5-11.1); PLATELET COUNT 309 K/MM3 (134-434); RBC 4.96 M/mm3 (4.00-5.60); RDW 17.1 % (11.9-15.9); WHITE BLOOD COUNT 9.9 K/mm3 (4.0-10.0)
[2017-12-26] MEDS: PRENATAL VITAMINS W/ FOLIC ACID TABLET (FP) PO SCH (10:26)
[2017-12-26] MEDS: amLODIPine BESYLATE 10 MG TABLET (FP) PO SCH (10:26)
[2017-12-26] MEDS: PREGABALIN 50 MG CAPSULE PO SCH ×2 (10:27→22:36)
[2017-12-26] MEDS: CALCIUM (OYSTER SHELL) 500 MG TABLET (FP) PO SCH (10:31)
[2017-12-26] MEDS: PATIENT'S OWN MEDICATION (NON-FORMULARY) (Omeprazole [Prilosec] 40 MG) PO SCH (10:31)
[2017-12-26 10:36] LABS: CHLORIDE 100 mmol/L (98-107); SODIUM 141 mmol/L (136-145)
[2017-12-26 10:44] LABS: ALBUMIN 3.4 g/dl (3.4-5.0); ALK PHOS 88 U/L (45-117); ANION GAP 10 (8-16); BILIRUBIN,TOTAL 0.5 mg/dL (0.2-1.0); BLOOD UREA NITROGEN 11 mg/dL (7-18); CALCIUM 9.5 mg/dL (8.5-10.1); CO2 31 mmol/L (21-32); CREATININE 1.2 mg/dL (0.7-1.3); GLUCOSE,RANDOM 117 mg/dL (74-106); SGOT/AST 10 U/L (15-37); SGPT/ALT 19 U/L (12-78); TOT PROT 6.8 g/dl (6.4-8.2)
--- NOTE | 2017-12-26 11:50 | PN ---
[facility] CIWA - CIWA Score Nausea/Vomitin-No Nausea/No Vomiting Muscle Tremors: 4-Moderate,w/Arms Extend Anxiety: 4-Mod. Anxious/Guarded Agitation: 4-Moderately Restless Paroxysmal Sweats: 1-Minimal Palms Moist Orientation: 0-Oriented Tacttile Disturbances: 3-Moderate Itch/Numb/Burn Auditory Disturbances: 0-None Visual Disturbances: 0-None Headache: 0-None Present CIWA-Ar Total Score: 16 BHS Progress Note (SOAP) Subjective: ANXIETY,TREMORS,CHILLS. Objective: 12/26/17 11:49 Vital Signs Temperature 96.4 F L 12/26/17 09:10 Pulse Rate 94 H 12/26/17 09:10 Respiratory Rate 18 12/26/17 09:10 Blood Pressure 117/75 12/26/17 09:10 O2 Sat by Pulse Oximetry (%) Laboratory Last Values WBC 9.9 K/mm3 (4.0-10.0) 12/26/17 07:30 RBC 4.96 M/mm3 (4.00-5.60) 12/26/17 07:30 Hgb 14.4 GM/dL (11.7-16.9) 12/26/17 07:30 Hct 43.6 % (35.4-49) 12/26/17 07:30 MCV 88.0 fl (80-96) 12/26/17 07:30 MCH 29.0 pg (25.7-33.7) 12/26/17 07:30 MCHC 33.0 g/dl (32.0-35.9) 12/26/17 07:30 RDW 17.1 % (11.9-15.9) H D 12/26/17 07:30 Plt Count 309 K/MM3 (134-434) D 12/26/17 07:30 MPV 9.2 fl (7.5-11.1) D 12/26/17 07:30 Sodium 141 mmol/L (136-145) 12/26/17 07:30 Potassium 4.0 mmol/L (3.5-5.1) 12/26/17 07:30 Chloride 100 mmol/L (98-107) 12/26/17 07:30 Carbon Dioxide 31 mmol/L (21-32) 12/26/17 07:30 Anion Gap 10 (8-16) 12/26/17 07:30 BUN 11 mg/dL (7-18) 12/26/17 07:30 Creatinine 1.2 mg/dL (0.7-1.3) 12/26/17 07:30 Creat Clearance w eGFR > 60 (>60) 12/26/17 07:30 Random Glucose 117 mg/dL (74-106) H 12/26/17 07:30 Calcium 9.5 mg/dL (8.5-10.1) 12/26/17 07:30 Total Bilirubin 0.5 mg/dL (0.2-1.0) 12/26/17 07:30 AST 10 U/L (15-37) L D 12/26/17 07:30 ALT 19 U/L (12-78) D 12/26/17 07:30 Alkaline Phosphatase 88 U/L (45-117) D 12/26/17 07:30 Total Protein 6.8 g/dl (6.4-8.2) 12/26/17 07:30 Albumin 3.4 g/dl (3.4-5.0) 12/26/17 07:30 Urine Color Yellow 12/25/17 08:20 Urine Appearance Turbid 12/25/17 08:20 Urine pH 5.0 (5.0-8.0) 12/25/17 08:20 Ur Specific [place] 1.023 (1.001-1.035) 12/25/17 08:20 Urine Protein 1+ (NEGATIVE) H 12/25/17 08:20 Urine Glucose (UA) Negative (NEGATIVE) 12/25/17 08:20 Urine Ketones Trace (NEGATIVE) H 12/25/17 08:20 Urine Blood Negative (NEGATIVE) 12/25/17 08:20 Urine Nitrite Negative (NEGATIVE) 12/25/17 08:20 Urine Bilirubin Negative (NEGATIVE) 12/25/17 08:20 Urine Urobilinogen 2.0 mg/dL (0.2-1.0) 12/25/17 08:20 Ur Leukocyte Esterase Negative (NEGATIVE) 12/25/17 08:20 Urine WBC (Auto) 25 /hpf (3-5) 12/25/17 08:20 Urine RBC (Auto) 3 /hpf (0-3) 12/25/17 08:20 Ur Epithelial Cells Rare /HPF (FEW) 12/25/17 08:20 Urine Mucus Many 12/25/17 08:20 Assessment: 12/26/17 11:49 WITHDRAWAL SX Plan: CONTINUE DETOX INCREASE PO FLUIDS
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
[2017-12-26] MEDS: RIVAROXABAN 20 MG TABLET PO SCH (17:44)
[2017-12-26] MEDS: THIAMINE HCL 100 MG TABLET (FP) PO SCH (22:36)
[2017-12-26 23:08] LABS: URINE APPEARANCE SLCLOUDY; URINE BILIRUBIN NEGATIVE (NEGATIVE); URINE BLOOD NEGATIVE (NEGATIVE); URINE COLOR YELLOW; URINE GLUCOSE (UA) NEGATIVE (NEGATIVE); URINE KETONE NEGATIVE (NEGATIVE); URINE LEUK ESTERASE NEGATIVE (NEGATIVE); URINE NITRITE NEGATIVE (NEGATIVE); URINE UROBILINOGEN 4.0 E.U/dl mg/dL (0.2-1.0)
[2017-12-26 23:13] LABS: URINE PROTEIN 2+ (NEGATIVE)
[2017-12-26 23:16] LABS: EPI CELLS RARE /HPF (FEW); URINE BACTERIA RARE /hpf (NONE SEEN); URINE MUCUS MANY
[2017-12-27] MEDS: chlordiazePOXIDE HCL 25 MG CAPSULE PO SCH ×3 (06:38→17:52)
[2017-12-27] MEDS: PATIENT'S OWN MEDICATION (NON-FORMULARY) (Omeprazole [Prilosec] 40 MG) PO SCH (06:38)
[2017-12-27] MEDS: chlordiazePOXIDE HCL 25 MG CAPSULE PO PRN (06:38)
[2017-12-27] MEDS: PREGABALIN 50 MG CAPSULE PO SCH ×3 (06:38→22:50)
[2017-12-27] MEDS: PRENATAL VITAMINS W/ FOLIC ACID TABLET (FP) PO SCH (10:27)
[2017-12-27] MEDS: amLODIPine BESYLATE 10 MG TABLET (FP) PO SCH (10:28)
[2017-12-27] MEDS: CALCIUM (OYSTER SHELL) 500 MG TABLET (FP) PO SCH (10:28)
--- NOTE | 2017-12-27 12:16 | PN ---
[facility] CIWA - CIWA Score Nausea/Vomitin-No Nausea/No Vomiting Muscle Tremors: 4-Moderate,w/Arms Extend Anxiety: 4-Mod. Anxious/Guarded Agitation: 4-Moderately Restless Paroxysmal Sweats: 1-Minimal Palms Moist Orientation: 0-Oriented Tacttile Disturbances: 3-Moderate Itch/Numb/Burn Auditory Disturbances: 0-None Visual Disturbances: 0-None Headache: 0-None Present CIWA-Ar Total Score: 16 BHS Progress Note (SOAP) Subjective: ANXIETY,SWEATS,SLIGHT TREMORS. Objective: 12/27/17 12:16 Vital Signs Temperature 99.3 F 12/27/17 09:35 Pulse Rate 86 12/27/17 09:35 Respiratory Rate 18 12/27/17 09:35 Blood Pressure 117/73 12/27/17 09:35 O2 Sat by Pulse Oximetry (%) Laboratory Last Values WBC 9.9 K/mm3 (4.0-10.0) 12/26/17 07:30 RBC 4.96 M/mm3 (4.00-5.60) 12/26/17 07:30 Hgb 14.4 GM/dL (11.7-16.9) 12/26/17 07:30 Hct 43.6 % (35.4-49) 12/26/17 07:30 MCV 88.0 fl (80-96) 12/26/17 07:30 MCH 29.0 pg (25.7-33.7) 12/26/17 07:30 MCHC 33.0 g/dl (32.0-35.9) 12/26/17 07:30 RDW 17.1 % (11.9-15.9) H D 12/26/17 07:30 Plt Count 309 K/MM3 (134-434) D 12/26/17 07:30 MPV 9.2 fl (7.5-11.1) D 12/26/17 07:30 Sodium 141 mmol/L (136-145) 12/26/17 07:30 Potassium 4.0 mmol/L (3.5-5.1) 12/26/17 07:30 Chloride 100 mmol/L (98-107) 12/26/17 07:30 Carbon Dioxide 31 mmol/L (21-32) 12/26/17 07:30 Anion Gap 10 (8-16) 12/26/17 07:30 BUN 11 mg/dL (7-18) 12/26/17 07:30 Creatinine 1.2 mg/dL (0.7-1.3) 12/26/17 07:30 Creat Clearance w eGFR > 60 (>60) 12/26/17 07:30 Random Glucose 117 mg/dL (74-106) H 12/26/17 07:30 Calcium 9.5 mg/dL (8.5-10.1) 12/26/17 07:30 Total Bilirubin 0.5 mg/dL (0.2-1.0) 12/26/17 07:30 AST 10 U/L (15-37) L D 12/26/17 07:30 ALT 19 U/L (12-78) D 12/26/17 07:30 Alkaline Phosphatase 88 U/L (45-117) D 12/26/17 07:30 Total Protein 6.8 g/dl (6.4-8.2) 12/26/17 07:30 Albumin 3.4 g/dl (3.4-5.0) 12/26/17 07:30 Urine Color Yellow 12/26/17 23:00 Urine Appearance Slcloudy 12/26/17 23:00 Urine pH 7.0 (5.0-8.0) D 12/26/17 23:00 Ur Specific [place] 1.021 (1.001-1.035) 12/26/17 23:00 Urine Protein 2+ (NEGATIVE) H 12/26/17 23:00 Urine Glucose (UA) Negative (NEGATIVE) 12/26/17 23:00 Urine Ketones Negative (NEGATIVE) 12/26/17 23:00 Urine Blood Negative (NEGATIVE) 12/26/17 23:00 Urine Nitrite Negative (NEGATIVE) 12/26/17 23:00 Urine Bilirubin Negative (NEGATIVE) 12/26/17 23:00 Urine Urobilinogen 4.0 e.u/dl mg/dL (0.2-1.0) 12/26/17 23:00 Ur Leukocyte Esterase Negative (NEGATIVE) 12/26/17 23:00 Urine WBC (Auto) 6 /hpf (3-5) 12/26/17 23:00 Urine RBC (Auto) 2 /hpf (0-3) 12/26/17 23:00 Ur Epithelial Cells Rare /HPF (FEW) 12/26/17 23:00 Urine Bacteria Rare /hpf (NONE SEEN) 12/26/17 23:00 Urine Mucus Many 12/26/17 23:00 RPR Titer Nonreactive (NONREACTIVE) 12/26/17 07:30 Assessment: 12/27/17 12:16 WITHDRAWAL SX Plan: CONTINUE DETOX
[2017-12-27] MEDS: RIVAROXABAN 20 MG TABLET PO SCH (17:52)
[2017-12-27] MEDS: chlordiazePOXIDE 5 MG CAPSULE PO SCH ×2 (22:49→23:41)
[2017-12-27] MEDS: THIAMINE HCL 100 MG TABLET (FP) PO SCH (22:50)
[2017-12-28] MEDS: PATIENT'S OWN MEDICATION (NON-FORMULARY) (Omeprazole [Prilosec] 40 MG) PO SCH (06:12)
[2017-12-28] MEDS: chlordiazePOXIDE 5 MG CAPSULE PO SCH ×2 (06:12→10:18)
[2017-12-28] MEDS: PREGABALIN 50 MG CAPSULE PO SCH ×3 (06:12→23:37)
[2017-12-28] MEDS: PRENATAL VITAMINS W/ FOLIC ACID TABLET (FP) PO SCH (10:18)
[2017-12-28] MEDS: CALCIUM (OYSTER SHELL) 500 MG TABLET (FP) PO SCH (10:18)
[2017-12-28] MEDS: amLODIPine BESYLATE 10 MG TABLET (FP) PO SCH (10:18)
[2017-12-28] MEDS ORDERED: COLLOIDAL OATMEAL 1 BAR EACH TP PRN (10:59)
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
[2017-12-28] MEDS: RIVAROXABAN 20 MG TABLET PO SCH (17:27)
[2017-12-28] MEDS: chlordiazePOXIDE HCL 10 MG CAPSULE PO SCH ×2 (17:27→23:37)
--- NOTE | 2017-12-28 18:44 | PN ---
[facility] Progress Note Note: Psychiatry Attending's note : Sheriffs Officer made attempt to engage with patient for discussion of medications. Mr Mao was approached at bedside.He refused to converse with MD. " Go away man.I am tired.I cannot talk now.Go to my records.I have nothing to tell you." Patient is clearly NOT interested in resuming any medication other than detox protocol. Discussed with RN assigned to this patient.
[2017-12-28] MEDS ORDERED: chlordiazePOXIDE HCL 10 MG CAPSULE PO SCH (23:00)
[2017-12-28] MEDS: THIAMINE HCL 100 MG TABLET (FP) PO SCH (23:38)
[2017-12-29] MEDS: PREGABALIN 50 MG CAPSULE PO SCH ×2 (05:58→13:09)
[2017-12-29] MEDS: chlordiazePOXIDE HCL 10 MG CAPSULE PO SCH ×2 (05:59→10:05)
[2017-12-29] MEDS: PATIENT'S OWN MEDICATION (NON-FORMULARY) (Omeprazole [Prilosec] 40 MG) PO SCH (07:07)
[2017-12-29 09:21] VITALS: BP 131/93; PULSE 82; TEMP 97.1
[2017-12-29] MEDS: PRENATAL VITAMINS W/ FOLIC ACID TABLET (FP) PO SCH (10:05)
[2017-12-29] MEDS: amLODIPine BESYLATE 10 MG TABLET (FP) PO SCH (10:05)
[2017-12-29] MEDS: CALCIUM (OYSTER SHELL) 500 MG TABLET (FP) PO SCH (10:05)
[2017-12-29] MEDS ORDERED: IBUPROFEN 400 MG TABLET (FP) PO PRN (14:29)
[2017-12-29] MEDS ORDERED: guaiFENesin/D-METHORPHAN HB 10 ML UNIT-DOSE CUPS PO PRN (14:29)
[2017-12-29] MEDS ORDERED: MAGNESIUM CITRATE 300 ML BOTTLE PO PRN (14:29)
[2017-12-29] MEDS ORDERED: hydrOXYzine PAMOATE 25 MG CAPSULE (FP) PO PRN (14:29)
[2017-12-29] MEDS ORDERED: ACETAMINOPHEN 325 MG TABLET (FP) PO PRN (14:29)
[2017-12-29] MEDS ORDERED: MENTHOL/PHENOL 1 EACH UD MM PRN (14:29)
[2017-12-29] MEDS ORDERED: LOPERAMIDE HCL 2 MG CAPSULE PO PRN (14:29)
[2017-12-29] MEDS ORDERED: P-EPHED 60MG/TRIPROLIDI 2.5MG TABLET PO PRN (14:29)
[2017-12-29] MEDS ORDERED: MAG HYDROX/AL HYDROX/SIMETH 30 ML UNIT-DOSE CUP PO PRN (14:29)
[2017-12-29] MEDS ORDERED: MAGNESIUM HYDROX 2400MG/30ML ORAL SUSPENSION 30 ML CUP PO PRN (14:29)
--- NOTE | 2017-12-29 17:34 | DS ---
[facility] Detox Discharge Summary Admission Date: 12/25/17 - History Present History: Alcohol Dependence Pertinent Past History: DVT GERD HTN PPD Positive - Physical Exam Results Vital Signs: Vital Signs Temperature 97.1 F L 12/29/17 09:20 Pulse Rate 82 12/29/17 09:20 Respiratory Rate 18 12/29/17 09:20 Blood Pressure 131/93 12/29/17 09:20 O2 Sat by Pulse Oximetry (%) Pertinent Admission Physical Exam Findings: Withdrawal symptoms Laboratory Tests 12/25/17 12/26/17 12/26/17 08:20 07:30 07:30 WBC 9.9 RBC 4.96 Hgb 14.4 Hct 43.6 MCV 88.0 MCH 29.0 MCHC 33.0 RDW 17.1 H D Plt Count 309 D MPV 9.2 D Sodium 141 Potassium 4.0 Chloride 100 Carbon Dioxide 31 Anion Gap 10 BUN 11 Creatinine 1.2 Creat Clearance w eGFR > 60 Random Glucose 117 H Calcium 9.5 Total Bilirubin 0.5 AST 10 L D ALT 19 D Alkaline Phosphatase 88 D Total Protein 6.8 Albumin 3.4 Urine Color Yellow Urine Appearance Turbid Urine pH 5.0 Ur Specific [place] 1.023 Urine Protein 1+ H Urine Glucose (UA) Negative Urine Ketones Trace H Urine Blood Negative Urine Nitrite Negative Urine Bilirubin Negative Urine Urobilinogen 2.0 Ur Leukocyte Esterase Negative Urine WBC (Auto) 25 Urine RBC (Auto) 3 Ur Epithelial Cells Rare Urine Bacteria Urine Mucus Many RPR Titer 12/26/17 12/26/17 07:30 23:00 WBC RBC Hgb Hct MCV MCH MCHC RDW Plt Count MPV Sodium Potassium Chloride Carbon Dioxide Anion Gap BUN Creatinine Creat Clearance w eGFR Random Glucose Calcium Total Bilirubin AST ALT Alkaline Phosphatase Total Protein Albumin Urine Color Yellow Urine Appearance Slcloudy Urine pH 7.0 D Ur Specific [place] 1.021 Urine Protein 2+ H Urine Glucose (UA) Negative Urine Ketones Negative Urine Blood Negative Urine Nitrite Negative Urine Bilirubin Negative Urine Urobilinogen 4.0 e.u/dl Ur Leukocyte Esterase Negative Urine WBC (Auto) 6 Urine RBC (Auto) 2 Ur Epithelial Cells Rare Urine Bacteria Rare Urine Mucus Many RPR Titer Nonreactive Labs noted - Treatment Hospital Course: Detox Protocol Followed, Detoxed Safely, Responded well, Discharged Condition Good, Rehab Referral Accepted - Medication Discharge Medications: Ambulatory Orders Omeprazole [Prilosec] 40 mg PO DAILY #30 capsule.dr 02/28/16 Bupropion HCl [Wellbutrin Xl] 300 mg PO DAILY #30 tab.sr.24h 08/11/16 Fluticasone Prop 0.05% Nasal [Flonase -] 1 spray NS BID #1 spray 01/26/17 Amlodipine Besylate [Norvasc -] 5 mg PO DAILY #30 tablet 02/15/17 Bupropion HCl [Wellbutrin Xl] 300 mg PO DAILY #30 tab.er.24h 02/15/17 Fluticasone Prop 0.05% Nasal [Flonase -] 1 spray NS BID #1 spray 02/15/17 Ranitidine [Zantac -] 150 mg PO BID #60 tablet 02/15/17 Amlodipine Besylate [Norvasc -] 10 mg PO DAILY 12/25/17 Calcium Carbonate [Calcium] 500 mg PO DAILY 12/25/17 Omeprazole 40 mg PO DAILY 12/25/17 Pregabalin [Lyrica -] 50 mg PO Q8H 12/25/17 Rivaroxaban [Xarelto -] 20 mg PO DAILY 12/25/17 Calcium (Oyster Shell) [Os-Phil 500MG -] 500 mg PO DAILY 12/29/17 Quetiapine Fumarate [Seroquel -] 200 mg PO DAILY 12/29/17 Quetiapine Fumarate [Seroquel -] 400 mg PO HS 12/29/17 - Diagnosis (1) Alcohol dependence with uncomplicated withdrawal Status: Acute (2) Blood clot in vein Status: Chronic (3) GERD (gastroesophageal reflux disease) Status: Chronic Qualifiers: Esophagitis presence: without esophagitis Qualified Code(s): K21.9 - Gastro -esophageal reflux disease without esophagitis (4) Hypertension Status: Chronic Qualifiers: Hypertension type: essential hypertension Qualified Code(s): I10 - Essential (primary) hypertension (5) Depression Status: Chronic Qualifiers: Depression Type: dysthymia Qualified Code(s): F34.1 - Dysthymic disorder (6) PPD positive, treated Status: Chronic - AMA Did Patient Leave Against Medical Advice: No
[2017-12-29] MEDS ORDERED: THIAMINE HCL 100 MG TABLET (FP) PO SCH (22:00)
[2017-12-30] MEDS ORDERED: PRENATAL VITAMINS W/ FOLIC ACID TABLET (FP) PO SCH (10:00)
== END 2017-12-29 13:14 | disposition other institution (70) | DRG 775 ==
LOC: YASAS 13:10 → Y3N 17:09
PROVIDERS: ADMIT Internal Medicine; ATTEND Internal Medicine
PROC: HZ2ZZZZ Detoxification Services for Substance Abuse Treatment (ICD-10-PCS; principal; 2017-12-25)
DX: F10.230 Alcohol dependence with withdrawal, uncomplicated (principal); F12.20 Cannabis dependence, uncomplicated; F17.213 Nicotine dependence, cigarettes, with withdrawal; F31.9 Bipolar disorder, unspecified; F34.1 Dysthymic disorder; F19.24 Other psychoactive substance dependence with psychoactive substance-induced mood disorder; I10 Essential (primary) hypertension; K21.9 Gastro-esophageal reflux disease without esophagitis; R00.0 Tachycardia, unspecified; Z99.3 Dependence on wheelchair; Z91.018 Allergy to other foods; Z91.011 Allergy to milk products; Z88.8 Allergy status to other drugs, medicaments and biological substances; Z87.898 Personal history of other specified conditions
CPT/HCPCS: 36415; 80053; 81003; 81015; 85027; 86593; 93005; 93010

== ENCOUNTER 2017-12-29 13:20 | Inpatient (IN) | payer BC ==
[2017-12-29] MEDS ORDERED: MAG HYDROX/AL HYDROX/SIMETH 30 ML UNIT-DOSE CUP PO PRN (14:42)
[2017-12-29] MEDS ORDERED: P-EPHED 60MG/TRIPROLIDI 2.5MG TABLET PO PRN (14:42)
[2017-12-29] MEDS ORDERED: MAGNESIUM CITRATE 300 ML BOTTLE PO PRN (14:42)
[2017-12-29] MEDS ORDERED: MENTHOL/PHENOL 1 EACH UD MM PRN (14:42)
[2017-12-29] MEDS ORDERED: hydrOXYzine PAMOATE 25 MG CAPSULE (FP) PO PRN (14:42)
[2017-12-29] MEDS ORDERED: ACETAMINOPHEN 325 MG TABLET (FP) PO PRN (14:42)
[2017-12-29] MEDS ORDERED: LOPERAMIDE HCL 2 MG CAPSULE PO PRN (14:42)
[2017-12-29] MEDS ORDERED: guaiFENesin/D-METHORPHAN HB 10 ML UNIT-DOSE CUPS PO PRN (14:42)
[2017-12-29] MEDS ORDERED: MAGNESIUM HYDROX 2400MG/30ML ORAL SUSPENSION 30 ML CUP PO PRN (14:42)
--- NOTE | 2017-12-29 17:00 | PN ---
[facility] Progress Note Note: Psychiatry Attending on-call's note : Came to unit. Approached patient for discussion of medications. Mr Mao remains argumentative and resistive to care. " Why are we going through the same thing again ? " Patient argues that he is taking " blood thinners " and that he is not for taking medications " that could act on medications that I get for my broken leg." Defiant attitude. Refuses to reconsider. Unit psychiatrist will follow.
[2017-12-29] MEDS ORDERED: RIVAROXABAN 20 MG TABLET PO SCH (18:00)
[2017-12-29] MEDS: PREGABALIN 50 MG CAPSULE PO SCH (23:28)
[2017-12-29] MEDS: THIAMINE HCL 100 MG TABLET (FP) PO SCH (23:28)
[2017-12-30] MEDS: PREGABALIN 50 MG CAPSULE PO SCH ×4 (06:39→21:28)
[2017-12-30] MEDS ORDERED: PANTOPRAZOLE 40 MG TABLET (FP) PO SCH ×2 (07:00→10:00)
[2017-12-30] MEDS: OMEPRAZOLE 40 MG CAPSULE PO SCH (07:49)
[2017-12-30] MEDS: RIVAROXABAN 20 MG TABLET PO SCH (08:35)
[2017-12-30] MEDS: amLODIPine BESYLATE 10 MG TABLET (FP) PO SCH (10:00)
[2017-12-30] MEDS: CALCIUM (OYSTER SHELL) 500 MG TABLET (FP) PO SCH (10:00)
[2017-12-30] MEDS: PRENATAL VITAMINS W/ FOLIC ACID TABLET (FP) PO SCH (10:00)
[2017-12-30] MEDS: CYCLOBENZAPRINE HCL 10 MG TABLET (FP) PO PRN ×2 (11:47→21:26)
--- NOTE | 2017-12-30 11:52 | PN ---
[facility] Progress Note Note: history of old injury to left knee pain in the left knee with scar no erythema no calf tenderness taking percocet in the past on lyrica 50 mgs po tid flexeril 10 mgs po tid advise close monitoring
[2017-12-30] MEDS: THIAMINE HCL 100 MG TABLET (FP) PO SCH (21:24)
[2017-12-31] MEDS: PREGABALIN 50 MG CAPSULE PO SCH ×3 (06:50→21:49)
[2017-12-31] MEDS: OMEPRAZOLE 40 MG CAPSULE PO SCH (06:51)
[2017-12-31] MEDS: CYCLOBENZAPRINE HCL 10 MG TABLET (FP) PO PRN (06:52)
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
[2017-12-31] MEDS: RIVAROXABAN 20 MG TABLET PO SCH (08:42)
[2017-12-31] MEDS: CALCIUM (OYSTER SHELL) 500 MG TABLET (FP) PO SCH (10:24)
[2017-12-31] MEDS: amLODIPine BESYLATE 10 MG TABLET (FP) PO SCH (10:24)
[2017-12-31] MEDS: PRENATAL VITAMINS W/ FOLIC ACID TABLET (FP) PO SCH (10:25)
--- NOTE | 2017-12-31 13:47 | PN ---
S Progress Note (SOAP) Subjective: c/o dry skin/eczema Objective: 12/31/17 13:43 Vital Signs - 24 hr 12/31/17 12/31/17 12/31/17 00:30 03:30 06:50 Temperature 97.8 F Pulse Rate 88 Respiratory 18 18 18 Rate Blood Pressure 118/69 labs reveiwed 12/31/17 13:44 abnormal u/a swelling left leg increrased, non tender s/p dvt an increase in xeralta Assessment: 12/31/17 13:46 dry skin/eczema - avenno and trimacinoloneointment as per patietn requeset, elebvate leg, xealta in am
[2017-12-31] MEDS: TRIAMCINOLONE ACET 0.025% OINTMENT 15 GM TUBE TP SCH (21:49)
[2017-12-31] MEDS: THIAMINE HCL 100 MG TABLET (FP) PO SCH (21:49)
[2017-12-31] MEDS: QUEtiapine FUMARATE 400 MG TABLET PO SCH (21:49)
[2018-01-01] MEDS: PREGABALIN 50 MG CAPSULE PO SCH ×3 (06:06→21:21)
[2018-01-01] MEDS: CYCLOBENZAPRINE HCL 10 MG TABLET (FP) PO PRN ×2 (06:06→21:22)
[2018-01-01] MEDS: QUEtiapine FUMARATE 200 MG TABLET PO SCH (06:06)
[2018-01-01] MEDS: OMEPRAZOLE 40 MG CAPSULE PO SCH (06:07)
[2018-01-01] MEDS: amLODIPine BESYLATE 10 MG TABLET (FP) PO SCH (09:57)
[2018-01-01] MEDS: RIVAROXABAN 20 MG TABLET PO SCH (09:57)
[2018-01-01] MEDS: PRENATAL VITAMINS W/ FOLIC ACID TABLET (FP) PO SCH (09:57)
[2018-01-01] MEDS: TRIAMCINOLONE ACET 0.025% OINTMENT 15 GM TUBE TP SCH (09:58)
[2018-01-01] MEDS: CALCIUM (OYSTER SHELL) 500 MG TABLET (FP) PO SCH (09:58)
[2018-01-01] MEDS: COLLOIDAL OATMEAL 1 BAR EACH TP PRN (10:00)
[2018-01-01 14:39] LABS: URINE APPEARANCE CLEAR; URINE BILIRUBIN NEGATIVE (NEGATIVE); URINE BLOOD NEGATIVE (NEGATIVE); URINE COLOR STRAW; URINE GLUCOSE (UA) NEGATIVE (NEGATIVE); URINE KETONE NEGATIVE (NEGATIVE); URINE LEUK ESTERASE NEGATIVE (NEGATIVE); URINE NITRITE NEGATIVE (NEGATIVE); URINE PROTEIN NEGATIVE (NEGATIVE); URINE UROBILINOGEN NEGATIVE mg/dL (0.2-1.0)
[2018-01-01] MEDS: QUEtiapine FUMARATE 400 MG TABLET PO SCH (21:21)
[2018-01-01] MEDS: THIAMINE HCL 100 MG TABLET (FP) PO SCH (21:21)
[2018-01-02] MEDS: OMEPRAZOLE 40 MG CAPSULE PO SCH (06:40)
[2018-01-02] MEDS: CYCLOBENZAPRINE HCL 10 MG TABLET (FP) PO PRN ×2 (06:40→14:30)
[2018-01-02] MEDS: QUEtiapine FUMARATE 200 MG TABLET PO SCH (06:40)
[2018-01-02] MEDS: PREGABALIN 50 MG CAPSULE PO SCH ×3 (06:40→21:27)
[2018-01-02] MEDS: RIVAROXABAN 20 MG TABLET PO SCH (08:45)
[2018-01-02] MEDS: PRENATAL VITAMINS W/ FOLIC ACID TABLET (FP) PO SCH (10:37)
[2018-01-02] MEDS: CALCIUM (OYSTER SHELL) 500 MG TABLET (FP) PO SCH (10:38)
[2018-01-02] MEDS: amLODIPine BESYLATE 10 MG TABLET (FP) PO SCH (10:38)
[2018-01-02] MEDS: TRIAMCINOLONE ACET 0.025% OINTMENT 15 GM TUBE TP SCH (10:40)
[2018-01-02] MEDS: THIAMINE HCL 100 MG TABLET (FP) PO SCH (21:27)
[2018-01-02] MEDS: QUEtiapine FUMARATE 400 MG TABLET PO SCH (21:27)
[2018-01-03] MEDS: OMEPRAZOLE 40 MG CAPSULE PO SCH (07:02)
[2018-01-03] MEDS: PREGABALIN 50 MG CAPSULE PO SCH (07:02)
[2018-01-03] MEDS: QUEtiapine FUMARATE 200 MG TABLET PO SCH (07:03)
[2018-01-03] MEDS: RIVAROXABAN 20 MG TABLET PO SCH (08:23)
--- NOTE | 2018-01-03 10:00 | PN ---
S Progress Note (SOAP) Subjective: imporvement in rash but left ankle still swollen on occasions changes over time, imprves elevation, no pain or erythema noted Objective: 01/03/18 09:59 Vital Signs - 24 hr 01/03/18 01/03/18 01/03/18 00:30 03:30 06:54 Temperature 98.0 F Pulse Rate 89 Respiratory 16 16 18 Rate Blood Pressure 133/81 Laboratory Tests 01/01/18 10:45 Urine Color Straw Urine Appearance Clear Urine pH 5.0 D Ur Specific [place] 1.006 Urine Protein Negative Urine Glucose (UA) Negative Urine Ketones Negative Urine Blood Negative Urine Nitrite Negative Urine Bilirubin Negative Urine Urobilinogen Negative Ur Leukocyte Esterase Negative no sign of infection or dvt noted Assessment: 01/03/18 10:00 cont present treratment restart muscle relaxant for pain relief
[2018-01-03] MEDS: PRENATAL VITAMINS W/ FOLIC ACID TABLET (FP) PO SCH (10:19)
[2018-01-03] MEDS: TRIAMCINOLONE ACET 0.025% OINTMENT 15 GM TUBE TP SCH (10:19)
[2018-01-03] MEDS: amLODIPine BESYLATE 10 MG TABLET (FP) PO SCH (10:19)
[2018-01-03] MEDS: CALCIUM (OYSTER SHELL) 500 MG TABLET (FP) PO SCH (10:20)
[2018-01-03] MEDS: CYCLOBENZAPRINE HCL 10 MG TABLET (FP) PO SCH ×2 (14:22→22:09)
[2018-01-03] MEDS: PREGABALIN 75 MG CAPSULE PO SCH ×2 (14:22→22:09)
[2018-01-03] MEDS: THIAMINE HCL 100 MG TABLET (FP) PO SCH (22:09)
[2018-01-03] MEDS: QUEtiapine FUMARATE 400 MG TABLET PO SCH (22:09)
[2018-01-04] MEDS: PREGABALIN 75 MG CAPSULE PO SCH ×3 (06:49→21:21)
[2018-01-04] MEDS: QUEtiapine FUMARATE 200 MG TABLET PO SCH (06:49)
[2018-01-04] MEDS: CYCLOBENZAPRINE HCL 10 MG TABLET (FP) PO SCH ×3 (06:49→21:21)
[2018-01-04] MEDS: OMEPRAZOLE 40 MG CAPSULE PO SCH (06:51)
[2018-01-04] MEDS: RIVAROXABAN 20 MG TABLET PO SCH (08:49)
[2018-01-04] MEDS: PRENATAL VITAMINS W/ FOLIC ACID TABLET (FP) PO SCH (09:20)
[2018-01-04] MEDS: TRIAMCINOLONE ACET 0.025% OINTMENT 15 GM TUBE TP SCH (09:21)
[2018-01-04] MEDS: CALCIUM (OYSTER SHELL) 500 MG TABLET (FP) PO SCH (09:21)
[2018-01-04] MEDS: amLODIPine BESYLATE 10 MG TABLET (FP) PO SCH (09:21)
--- NOTE | 2018-01-04 13:30 | PN ---
[facility] Progress Note (SOAP) Subjective: REQUEWTING COMPORESSION STOCKINGS Objective: 01/04/18 13:27 Vital Signs - 24 hr 01/04/18 01/04/18 01/04/18 00:30 03:30 07:05 Temperature 98.0 F Pulse Rate 96 H Respiratory 16 16 16 Rate Blood Pressure 118/70 Laboratory Tests 01/01/18 10:45 Urine Color Straw Urine Appearance Clear Urine pH 5.0 D Ur Specific [place] 1.006 Urine Protein Negative Urine Glucose (UA) Negative Urine Ketones Negative Urine Blood Negative Urine Nitrite Negative Urine Bilirubin Negative Urine Urobilinogen Negative Ur Leukocyte Esterase Negative LABS REVEIWED Assessment: 01/04/18 13:28 LEG SWELLING S/P INJURY AND INCREASING XERALTA, ORDERED COMPRESSION STOCKINGS
[2018-01-04] MEDS: THIAMINE HCL 100 MG TABLET (FP) PO SCH (21:21)
[2018-01-04] MEDS: QUEtiapine FUMARATE 400 MG TABLET PO SCH (21:22)
[2018-01-05] MEDS: OMEPRAZOLE 40 MG CAPSULE PO SCH (06:10)
[2018-01-05] MEDS: QUEtiapine FUMARATE 200 MG TABLET PO SCH (06:10)
[2018-01-05] MEDS: CYCLOBENZAPRINE HCL 10 MG TABLET (FP) PO SCH ×3 (06:10→21:16)
[2018-01-05] MEDS: PREGABALIN 75 MG CAPSULE PO SCH ×3 (06:10→21:16)
[2018-01-05] MEDS: RIVAROXABAN 20 MG TABLET PO SCH (09:15)
[2018-01-05] MEDS: PRENATAL VITAMINS W/ FOLIC ACID TABLET (FP) PO SCH (10:15)
[2018-01-05] MEDS: amLODIPine BESYLATE 10 MG TABLET (FP) PO SCH (10:15)
[2018-01-05] MEDS: CALCIUM (OYSTER SHELL) 500 MG TABLET (FP) PO SCH (10:16)
[2018-01-05] MEDS: TRIAMCINOLONE ACET 0.025% OINTMENT 15 GM TUBE TP SCH (10:16)
[2018-01-05] MEDS: QUEtiapine FUMARATE 400 MG TABLET PO SCH (21:16)
[2018-01-05] MEDS: THIAMINE HCL 100 MG TABLET (FP) PO SCH (21:16)
[2018-01-06] MEDS: QUEtiapine FUMARATE 200 MG TABLET PO SCH (06:55)
[2018-01-06] MEDS: PREGABALIN 75 MG CAPSULE PO SCH ×3 (06:55→21:26)
[2018-01-06] MEDS: OMEPRAZOLE 40 MG CAPSULE PO SCH (06:55)
[2018-01-06] MEDS: CYCLOBENZAPRINE HCL 10 MG TABLET (FP) PO SCH ×3 (06:55→21:26)
[2018-01-06] MEDS: RIVAROXABAN 20 MG TABLET PO SCH (09:05)
[2018-01-06] MEDS: PRENATAL VITAMINS W/ FOLIC ACID TABLET (FP) PO SCH (09:05)
[2018-01-06] MEDS: amLODIPine BESYLATE 10 MG TABLET (FP) PO SCH (09:06)
[2018-01-06] MEDS: CALCIUM (OYSTER SHELL) 500 MG TABLET (FP) PO SCH (09:07)
[2018-01-06] MEDS: TRIAMCINOLONE ACET 0.025% OINTMENT 15 GM TUBE TP SCH (09:40)
[2018-01-06] MEDS: THIAMINE HCL 100 MG TABLET (FP) PO SCH (21:26)
[2018-01-06] MEDS: QUEtiapine FUMARATE 400 MG TABLET PO SCH (21:26)
[2018-01-07] MEDS: OMEPRAZOLE 40 MG CAPSULE PO SCH (06:45)
[2018-01-07] MEDS: PREGABALIN 75 MG CAPSULE PO SCH ×3 (06:45→21:22)
[2018-01-07] MEDS: CYCLOBENZAPRINE HCL 10 MG TABLET (FP) PO SCH ×3 (06:45→21:22)
[2018-01-07] MEDS: QUEtiapine FUMARATE 200 MG TABLET PO SCH (06:45)
[2018-01-07] MEDS: CALCIUM (OYSTER SHELL) 500 MG TABLET (FP) PO SCH (09:41)
[2018-01-07] MEDS: amLODIPine BESYLATE 10 MG TABLET (FP) PO SCH (09:41)
[2018-01-07] MEDS: RIVAROXABAN 20 MG TABLET PO SCH (09:41)
[2018-01-07] MEDS: PRENATAL VITAMINS W/ FOLIC ACID TABLET (FP) PO SCH (09:41)
[2018-01-07] MEDS: TRIAMCINOLONE ACET 0.025% OINTMENT 15 GM TUBE TP SCH (09:44)
[2018-01-07] MEDS: THIAMINE HCL 100 MG TABLET (FP) PO SCH (21:22)
[2018-01-07] MEDS: QUEtiapine FUMARATE 400 MG TABLET PO SCH (21:22)
[2018-01-08] MEDS: QUEtiapine FUMARATE 200 MG TABLET PO SCH (06:24)
[2018-01-08] MEDS: OMEPRAZOLE 40 MG CAPSULE PO SCH (06:24)
[2018-01-08] MEDS: CYCLOBENZAPRINE HCL 10 MG TABLET (FP) PO SCH ×3 (06:24→21:24)
[2018-01-08] MEDS: PREGABALIN 75 MG CAPSULE PO SCH ×3 (06:24→21:24)
[2018-01-08] MEDS: PRENATAL VITAMINS W/ FOLIC ACID TABLET (FP) PO SCH (10:12)
[2018-01-08] MEDS: CALCIUM (OYSTER SHELL) 500 MG TABLET (FP) PO SCH (10:12)
[2018-01-08] MEDS: amLODIPine BESYLATE 10 MG TABLET (FP) PO SCH (10:12)
[2018-01-08] MEDS: TRIAMCINOLONE ACET 0.025% OINTMENT 15 GM TUBE TP SCH (10:13)
[2018-01-08] MEDS: RIVAROXABAN 20 MG TABLET PO SCH (10:18)
--- NOTE | 2018-01-08 11:00 | PN ---
[facility] Progress Note (SOAP) Subjective: DID NOT GET COMPORESSION STOCKING, DOES NOT NEED MEDICATION WHEN DISCHARGED DO NOT SEND Objective: 01/08/18 10:59 Vital Signs - 24 hr 01/08/18 01/08/18 03:30 06:53 Temperature 97.8 F Pulse Rate 98 H Respiratory 18 18 Rate Blood Pressure 105/64 Laboratory Tests 01/01/18 10:45 Urine Color Straw Urine Appearance Clear Urine pH 5.0 D Ur Specific [place] 1.006 Urine Protein Negative Urine Glucose (UA) Negative Urine Ketones Negative Urine Blood Negative Urine Nitrite Negative Urine Bilirubin Negative Urine Urobilinogen Negative Ur Leukocyte Esterase Negative LABS REVEIWED Assessment: 01/08/18 11:00 D/C IN AM NO MEDICATIONS, CONTINUE TO TRY TO OBTAIN COMPORESSION STOCKINGS.
[2018-01-08] MEDS: QUEtiapine FUMARATE 400 MG TABLET PO SCH (21:24)
[2018-01-08] MEDS: THIAMINE HCL 100 MG TABLET (FP) PO SCH (21:24)
[2018-01-09] MEDS: PREGABALIN 75 MG CAPSULE PO SCH ×3 (06:39→21:38)
[2018-01-09] MEDS: QUEtiapine FUMARATE 200 MG TABLET PO SCH (06:39)
[2018-01-09] MEDS: OMEPRAZOLE 40 MG CAPSULE PO SCH (06:40)
[2018-01-09] MEDS: CYCLOBENZAPRINE HCL 10 MG TABLET (FP) PO SCH ×3 (06:40→21:38)
[2018-01-09] MEDS: RIVAROXABAN 20 MG TABLET PO SCH (09:50)
[2018-01-09] MEDS: CALCIUM (OYSTER SHELL) 500 MG TABLET (FP) PO SCH (09:51)
[2018-01-09] MEDS: TRIAMCINOLONE ACET 0.025% OINTMENT 15 GM TUBE TP SCH (09:51)
[2018-01-09] MEDS: PRENATAL VITAMINS W/ FOLIC ACID TABLET (FP) PO SCH (09:51)
[2018-01-09] MEDS: amLODIPine BESYLATE 10 MG TABLET (FP) PO SCH (09:51)
[2018-01-09] MEDS: THIAMINE HCL 100 MG TABLET (FP) PO SCH (21:38)
[2018-01-09] MEDS: QUEtiapine FUMARATE 400 MG TABLET PO SCH (21:39)
[2018-01-10] MEDS: PREGABALIN 75 MG CAPSULE PO SCH ×3 (06:43→21:25)
[2018-01-10] MEDS: CYCLOBENZAPRINE HCL 10 MG TABLET (FP) PO SCH ×3 (06:44→21:25)
[2018-01-10] MEDS: QUEtiapine FUMARATE 200 MG TABLET PO SCH (06:44)
[2018-01-10] MEDS: OMEPRAZOLE 40 MG CAPSULE PO SCH (06:49)
[2018-01-10] MEDS: RIVAROXABAN 20 MG TABLET PO SCH (08:32)
[2018-01-10] MEDS: PRENATAL VITAMINS W/ FOLIC ACID TABLET (FP) PO SCH (10:19)
[2018-01-10] MEDS: amLODIPine BESYLATE 10 MG TABLET (FP) PO SCH (10:23)
[2018-01-10] MEDS: CALCIUM (OYSTER SHELL) 500 MG TABLET (FP) PO SCH (10:23)
[2018-01-10] MEDS: TRIAMCINOLONE ACET 0.025% OINTMENT 15 GM TUBE TP SCH (10:23)
[2018-01-10] MEDS: THIAMINE HCL 100 MG TABLET (FP) PO SCH (21:25)
[2018-01-10] MEDS: QUEtiapine FUMARATE 400 MG TABLET PO SCH (21:26)
[2018-01-11] MEDS: OMEPRAZOLE 40 MG CAPSULE PO SCH (06:34)
[2018-01-11] MEDS: PREGABALIN 75 MG CAPSULE PO SCH ×3 (06:35→21:18)
[2018-01-11] MEDS: CYCLOBENZAPRINE HCL 10 MG TABLET (FP) PO SCH ×3 (06:35→21:17)
[2018-01-11] MEDS: QUEtiapine FUMARATE 200 MG TABLET PO SCH (06:35)
[2018-01-11] MEDS: RIVAROXABAN 20 MG TABLET PO SCH (10:27)
[2018-01-11] MEDS: CALCIUM (OYSTER SHELL) 500 MG TABLET (FP) PO SCH (10:27)
[2018-01-11] MEDS: PRENATAL VITAMINS W/ FOLIC ACID TABLET (FP) PO SCH (10:27)
[2018-01-11] MEDS: amLODIPine BESYLATE 10 MG TABLET (FP) PO SCH (10:27)
[2018-01-11] MEDS: TRIAMCINOLONE ACET 0.025% OINTMENT 15 GM TUBE TP SCH (11:49)
[2018-01-11] MEDS: THIAMINE HCL 100 MG TABLET (FP) PO SCH (21:17)
[2018-01-11] MEDS: QUEtiapine FUMARATE 400 MG TABLET PO SCH (21:18)
[2018-01-12] MEDS: PREGABALIN 75 MG CAPSULE PO SCH ×3 (06:59→21:15)
[2018-01-12] MEDS: CYCLOBENZAPRINE HCL 10 MG TABLET (FP) PO SCH ×3 (07:00→21:16)
[2018-01-12] MEDS: OMEPRAZOLE 40 MG CAPSULE PO SCH (07:01)
[2018-01-12] MEDS: QUEtiapine FUMARATE 200 MG TABLET PO SCH (07:02)
[2018-01-12] MEDS: RIVAROXABAN 20 MG TABLET PO SCH (08:39)
[2018-01-12] MEDS: CALCIUM (OYSTER SHELL) 500 MG TABLET (FP) PO SCH (09:49)
[2018-01-12] MEDS: amLODIPine BESYLATE 10 MG TABLET (FP) PO SCH (09:49)
[2018-01-12] MEDS: PRENATAL VITAMINS W/ FOLIC ACID TABLET (FP) PO SCH (09:49)
[2018-01-12] MEDS: TRIAMCINOLONE ACET 0.025% OINTMENT 15 GM TUBE TP SCH (09:49)
[2018-01-12] MEDS: THIAMINE HCL 100 MG TABLET (FP) PO SCH (21:15)
[2018-01-12] MEDS: QUEtiapine FUMARATE 400 MG TABLET PO SCH (21:16)
[2018-01-13] MEDS: OMEPRAZOLE 40 MG CAPSULE PO SCH (06:42)
[2018-01-13] MEDS: CYCLOBENZAPRINE HCL 10 MG TABLET (FP) PO SCH ×4 (06:42→21:18)
[2018-01-13] MEDS: PREGABALIN 75 MG CAPSULE PO SCH ×2 (06:42→21:18)
[2018-01-13] MEDS: QUEtiapine FUMARATE 200 MG TABLET PO SCH (06:42)
[2018-01-13] MEDS: RIVAROXABAN 20 MG TABLET PO SCH (08:38)
[2018-01-13] MEDS: PRENATAL VITAMINS W/ FOLIC ACID TABLET (FP) PO SCH (10:06)
[2018-01-13] MEDS: TRIAMCINOLONE ACET 0.025% OINTMENT 15 GM TUBE TP SCH (10:06)
[2018-01-13] MEDS: amLODIPine BESYLATE 10 MG TABLET (FP) PO SCH (10:06)
[2018-01-13] MEDS: CALCIUM (OYSTER SHELL) 500 MG TABLET (FP) PO SCH (10:06)
[2018-01-13] MEDS: THIAMINE HCL 100 MG TABLET (FP) PO SCH (21:18)
[2018-01-13] MEDS: QUEtiapine FUMARATE 400 MG TABLET PO SCH (21:19)
[2018-01-14] MEDS: QUEtiapine FUMARATE 200 MG TABLET PO SCH (06:05)
[2018-01-14] MEDS: OMEPRAZOLE 40 MG CAPSULE PO SCH (06:05)
[2018-01-14] MEDS: CYCLOBENZAPRINE HCL 10 MG TABLET (FP) PO SCH ×3 (06:05→21:20)
[2018-01-14] MEDS: RIVAROXABAN 20 MG TABLET PO SCH (08:33)
[2018-01-14] MEDS: PRENATAL VITAMINS W/ FOLIC ACID TABLET (FP) PO SCH (09:55)
[2018-01-14] MEDS: PREGABALIN 75 MG CAPSULE PO SCH ×2 (09:55→21:20)
[2018-01-14] MEDS: amLODIPine BESYLATE 10 MG TABLET (FP) PO SCH (09:56)
[2018-01-14] MEDS: CALCIUM (OYSTER SHELL) 500 MG TABLET (FP) PO SCH (09:56)
[2018-01-14] MEDS: TRIAMCINOLONE ACET 0.025% OINTMENT 15 GM TUBE TP SCH (09:56)
[2018-01-14] MEDS: QUEtiapine FUMARATE 400 MG TABLET PO SCH (21:20)
[2018-01-14] MEDS: THIAMINE HCL 100 MG TABLET (FP) PO SCH (21:20)
[2018-01-15] MEDS: QUEtiapine FUMARATE 200 MG TABLET PO SCH (06:20)
[2018-01-15] MEDS: OMEPRAZOLE 40 MG CAPSULE PO SCH (06:20)
[2018-01-15] MEDS: CYCLOBENZAPRINE HCL 10 MG TABLET (FP) PO SCH ×3 (06:20→21:27)
[2018-01-15] MEDS: amLODIPine BESYLATE 10 MG TABLET (FP) PO SCH (09:33)
[2018-01-15] MEDS: RIVAROXABAN 20 MG TABLET PO SCH (09:33)
[2018-01-15] MEDS: PREGABALIN 75 MG CAPSULE PO SCH ×2 (09:33→21:27)
[2018-01-15] MEDS: PRENATAL VITAMINS W/ FOLIC ACID TABLET (FP) PO SCH (09:33)
[2018-01-15] MEDS: CALCIUM (OYSTER SHELL) 500 MG TABLET (FP) PO SCH (09:33)
[2018-01-15] MEDS: TRIAMCINOLONE ACET 0.025% OINTMENT 15 GM TUBE TP SCH (09:34)
[2018-01-15] MEDS: COLLOIDAL OATMEAL 1 BAR EACH TP PRN (09:35)
[2018-01-15] MEDS: THIAMINE HCL 100 MG TABLET (FP) PO SCH (21:27)
[2018-01-15] MEDS: QUEtiapine FUMARATE 400 MG TABLET PO SCH (21:28)
[2018-01-16] MEDS: QUEtiapine FUMARATE 200 MG TABLET PO SCH (06:28)
[2018-01-16] MEDS: CYCLOBENZAPRINE HCL 10 MG TABLET (FP) PO SCH (06:28)
[2018-01-16] MEDS: OMEPRAZOLE 40 MG CAPSULE PO SCH (06:29)
[2018-01-16 06:58] VITALS: BP 121/68; PULSE 98; TEMP 97.2
[2018-01-16] MEDS: RIVAROXABAN 20 MG TABLET PO SCH (08:36)
--- NOTE | 2018-01-16 09:38 | PN ---
Psychiatric Progress Note Vital Signs: Vital Signs Period Temp Pulse Resp BP Sys/Brennan Pulse Ox Last 24 Hr 97.2 F 98-106 -18 111-121/68-68 Date of Session: 01/16/18 Chief Complaint:: discharge visit HPI: Patient has addressed alcohol, cocaine, nicotine dependence comorbid Bipolar I disorder. ROS: GERD, peptic ulcer disease medically managed. Current Medications: Active Medications Generic Name Dose Route Start Last Admin Trade Name Freq PRN Reason Stop Dose Admin Acetaminophen 650 mg 12/29/17 14:42 Tylenol - PO Q4H PRN FEVER Al Hydroxide/Mg Hydroxide 30 ml 12/29/17 14:42 Mylanta Oral Suspension - PO Q6H PRN DYSPEPSIA Amlodipine Besylate 10 mg 12/30/17 10:00 01/15/18 09:33 Norvasc - PO 10 mg DAILY PATY Administration Bupropion HCl 300 mg 01/01/18 10:00 01/15/18 09:33 Wellbutrin Xl - PO 300 mg DAILY PATY Administration Calcium Carbonate 500 mg 12/30/17 10:00 01/15/18 09:33 Os-Phil 500mg - PO 500 mg DAILY PATY Administration Colloidal Oatmeal 1 applic 12/31/17 13:42 01/15/18 09:35 Aveeno Soap - TP 1 applic DAILY PRN Administration HYGEINE Cyclobenzaprine HCl 10 mg 01/03/18 14:00 01/16/18 06:28 Flexeril - PO 10 mg TID PATY Administration Eucalyptus/Menthol/Phenol/Sorbitol 1 each 12/29/17 14:42 Cepastat Lozenge - MM Q4H PRN SORE THROAT Guaifenesin 10 ml 12/29/17 14:42 Robitussin Dm - PO Q6H PRN COUGH Hydroxyzine Pamoate 25 mg 12/29/17 14:42 Vistaril - PO Q4H PRN AGITATION Loperamide HCl 4 mg 12/29/17 14:42 Imodium - PO Q6H PRN DIARRHEA Magnesium Citrate 300 ml 12/29/17 14:42 Citroma - PO Q48H PRN CONSTIPATION Magnesium Hydroxide 30 ml 12/29/17 14:42 Milk Of Magnesia - PO DAILY PRN CONSTIPATION Omeprazole 40 Mg 1 each 12/30/17 07:30 02/28/18 06:29 Capsule PO 1 each DAILY@0600 PATY Administration Pregabalin 75 mg 01/13/18 22:00 01/15/18 21:27 Lyrica - PO 75 mg BID PATY Administration Multivit/Folic Acid/Iron 1 tab 12/30/17 10:00 01/15/18 09:33 Vitamins (Sjr) - PO 1 tab DAILY PATY Administration Pseudoephedrine/Triprolidine 1 combo 12/29/17 14:42 Actifed - PO TID PRN NASAL CONGESTION Quetiapine Fumarate 400 mg 12/31/17 22:00 01/15/18 21:28 Seroquel - PO 400 mg HS PATY Administration Quetiapine Fumarate 200 mg 01/01/18 07:00 01/16/18 06:28 Seroquel - PO 200 mg AM PATY Administration Rivaroxaban 20 mg 12/30/17 09:00 01/16/18 08:36 Xarelto - PO 20 mg DAILY@0900 PATY Administration Thiamine HCl 100 mg 12/29/17 22:00 01/15/18 21:27 Vitamin B1 - PO 100 mg HS PATY Administration Triamcinolone Acetonide 1 applic 12/31/17 15:00 01/15/18 09:34 Aristocort 0.025% Ointment - TP 1 applic DAILY PATY Administration Current Side Effect: No Lab tests ordered: No Lab tests reviewed: Yes Provider note:: Patient has completed today his treatment and met his goals, wll continue to address his issues at [facility] treatment program. He gained insights into his problems and motivated to continue maintain abstinence he was encouraged to utilize all supports available to prevent relapses and use alternative ways to cope with the life stressors. Patient continues to finding seroquel and wellbutrin being effective, patient reports that he does not need a scripts since has medications at home and also his psychiatrist gives 5 refills for medications and , stable for discharge today. Total face to face time:: 30 Mental Status Exam - Mental Status Exam Alert and Oriented to: Time, Place, Person Cognitive Function: Good Patient Appearance: Well Groomed Mood: Hopeful Affect: Appropriate, Mood Congruent Patient Behavior: Appropriate, Cooperative Speech Pattern: Clear, Appropriate Voice Loudness: Normal Thought Process: Intact, Goal Oriented Thought Disorder: Not Present Hallucinations: Denies Suicidal Ideation: Denies Homicidal Ideation: Denies Insight/Judgement: Fair Sleep: Fair Appetite: Fair Muscle strength/Tone: Normal Gait/Station: Other (in wheelchair) Psychiatric Treatment Plan - Problem List (1) Alcohol dependence Current Visit: Yes (2) Cocaine dependence Current Visit: No Qualifiers: Substance use status: uncomplicated Qualified Code(s): F14.20 - Cocaine dependence, uncomplicated (3) Nicotine dependence Current Visit: No Qualifiers: Nicotine product type: cigarettes Substance use status: in withdrawal Qualified Code(s): F17.213 - Nicotine dependence, cigarettes, with withdrawal Comment: . (4) Bipolar disorder Current Visit: No Comment: Self-report.
== END 2018-01-16 08:45 | disposition home or self-care (01) | DRG 772 ==
LOC: YASAS 13:20 → Y5N 13:21
PROVIDERS: ADMIT Psychiatry & Neurology Psychiatry; ATTEND Psychiatry & Neurology Psychiatry
PROC: HZ42ZZZ Group Counseling for Substance Abuse Treatment, Cognitive-Behavioral (ICD-10-PCS; principal; 2017-12-29)
DX: F10.20 Alcohol dependence, uncomplicated (principal); F14.20 Cocaine dependence, uncomplicated; F12.20 Cannabis dependence, uncomplicated; F17.210 Nicotine dependence, cigarettes, uncomplicated; F31.9 Bipolar disorder, unspecified; F19.24 Other psychoactive substance dependence with psychoactive substance-induced mood disorder; F39 Unspecified mood [affective] disorder; K21.9 Gastro-esophageal reflux disease without esophagitis; L85.3 Xerosis cutis; L30.9 Dermatitis, unspecified; I10 Essential (primary) hypertension; I26.99 Other pulmonary embolism without acute cor pulmonale; I82.409 Acute embolism and thrombosis of unspecified deep veins of unspecified lower extremity; R82.90 Unspecified abnormal findings in urine; R22.40 Localized swelling, mass and lump, unspecified lower limb; Z87.898 Personal history of other specified conditions; Z99.3 Dependence on wheelchair; Z79.01 Long term (current) use of anticoagulants
CPT/HCPCS: 81003

== ENCOUNTER 2018-06-04 14:59 | Inpatient (IN) | payer BC ==
[2018-06-04 15:19] VITALS: BMI 29.2
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
[2018-06-04] MEDS ORDERED: ACETAMINOPHEN 325 MG TABLET (FP) PO PRN (18:00)
[2018-06-04] MEDS ORDERED: LOPERAMIDE HCL 2 MG CAPSULE PO PRN (18:00)
[2018-06-04] MEDS ORDERED: MENTHOL/PHENOL 1 EACH UD MM PRN (18:00)
[2018-06-04] MEDS ORDERED: IBUPROFEN 400 MG TABLET (FP) PO PRN (18:00)
[2018-06-04] MEDS ORDERED: P-EPHED 60MG/TRIPROLIDI 2.5MG TABLET PO PRN (18:00)
[2018-06-04] MEDS ORDERED: chlordiazePOXIDE HCL 25 MG CAPSULE PO PRN (18:00)
[2018-06-04] MEDS ORDERED: MAGNESIUM CITRATE 300 ML BOTTLE PO PRN (18:00)
[2018-06-04] MEDS ORDERED: MAG HYDROX/AL HYDROX/SIMETH 30 ML UNIT-DOSE CUP PO PRN (18:00)
[2018-06-04] MEDS ORDERED: MAGNESIUM HYDROX 2400MG/30ML ORAL SUSPENSION 30 ML CUP PO PRN (18:00)
[2018-06-04] MEDS ORDERED: guaiFENesin/D-METHORPHAN HB 10 ML UNIT-DOSE CUPS PO PRN (18:00)
[2018-06-04] MEDS ORDERED: NICOTINE POLACRILEX 2 MG GUM BC PRN (18:00)
[2018-06-04] MEDS ORDERED: chlordiazePOXIDE HCL 25 MG CAPSULE PO ONE (18:45)
[2018-06-04] MEDS: CEPHALEXIN MONOHYDRATE 500 MG CAPSULE (UD) PO SCH ×2 (20:04→23:56)
[2018-06-04] MEDS ORDERED: MELATONIN 5 MG TABLETS PO PRN (22:00)
[2018-06-04] MEDS: THIAMINE HCL 100 MG TABLET (FP) PO SCH (22:32)
[2018-06-04] MEDS: chlordiazePOXIDE HCL 25 MG CAPSULE PO SCH (22:32)
[2018-06-04] MEDS: CLOTRIMAZOLE 1% CREAM 15 GM TUBE TP SCH (22:33)
[2018-06-04] MEDS: BACITRACIN 0.9 GM PACKET TP SCH (22:35)
[2018-06-05] MEDS: chlordiazePOXIDE HCL 25 MG CAPSULE PO SCH ×4 (06:13→22:16)
[2018-06-05] MEDS: CEPHALEXIN MONOHYDRATE 500 MG CAPSULE (UD) PO SCH ×4 (06:13→23:20)
--- NOTE | 2018-06-05 09:45 | PN ---
S CIWA - CIWA Score Nausea/Vomitin-No Nausea/No Vomiting Muscle Tremors: 4-Moderate,w/Arms Extend Anxiety: 4-Mod. Anxious/Guarded Agitation: 4-Moderately Restless Paroxysmal Sweats: 1-Minimal Palms Moist Orientation: 0-Oriented Tacttile Disturbances: 0-None Auditory Disturbances: 0-None Visual Disturbances: 0-None Headache: 0-None Present CIWA-Ar Total Score: 13 S Progress Note (SOAP) Subjective: ANXIETY,SWEATS,HOT/COLD CHILLS. Objective: 06/05/18 09:44 Vital Signs 06/05/18 06/05/18 03:30 06:19 Temperature 97.0 F L Pulse Rate 66 Respiratory 18 18 Rate Blood Pressure 110/69 LABS PENDING Assessment: 06/05/18 09:45 WITHDRAWAL SX Plan: CONTINUE DETOX
[2018-06-05 09:51] LABS: HEMATOCRIT 40.8 % (35.4-49); HEMOGLOBIN 13.7 GM/dL (11.7-16.9); MCHC 33.7 g/dl (32.0-35.9); MEAN CELL VOLUME 91.9 fl (80-96); MEAN PLT VOLUME 9.6 fl (7.5-11.1); PLATELET COUNT 224 K/MM3 (134-434); RBC 4.44 M/mm3 (4.00-5.60); RDW 16.4 % (11.9-15.9); WHITE BLOOD COUNT 7.4 K/mm3 (4.0-10.0)
[2018-06-05 10:01] LABS: CHLORIDE 105 mmol/L (98-107); POTASSIUM 4.2 mmol/L (3.5-5.1); SODIUM 143 mmol/L (136-145)
[2018-06-05 10:22] LABS: ALBUMIN 3.1 g/dl (3.4-5.0); ALK PHOS 72 U/L (45-117); ANION GAP 7 (8-16); BILIRUBIN,TOTAL 0.4 mg/dL (0.2-1.0); BLOOD UREA NITROGEN 14 mg/dL (7-18); CALCIUM 8.5 mg/dL (8.5-10.1); CO2 31 mmol/L (21-32); CREATININE 1.2 mg/dL (0.7-1.3); GLUCOSE,RANDOM 86 mg/dL (74-106); SGOT/AST 19 U/L (15-37); SGPT/ALT 30 U/L (12-78); TOT PROT 6.2 g/dl (6.4-8.2)
[2018-06-05] MEDS: TRIAMCINOLONE ACET 0.1% OINT 15 GM TUBE TP SCH ×3 (10:42→22:17)
[2018-06-05] MEDS: BACITRACIN 0.9 GM PACKET TP SCH ×2 (10:59→22:16)
[2018-06-05] MEDS: RIVAROXABAN 20 MG TABLET PO SCH (10:59)
[2018-06-05] MEDS: amLODIPine BESYLATE 10 MG TABLET (FP) PO SCH (10:59)
[2018-06-05] MEDS: CLOTRIMAZOLE 1% CREAM 15 GM TUBE TP SCH ×2 (10:59→22:17)
[2018-06-05] MEDS: NICOTINE 14 MG/24 HOURS TOPICAL PATCH TD SCH (10:59)
[2018-06-05] MEDS: PRENATAL VITAMINS W/ FOLIC ACID TABLET (FP) PO SCH (10:59)
[2018-06-05] MEDS ORDERED: PANTOPRAZOLE 40 MG TABLET (FP) PO ONE (12:30)
--- NOTE | 2018-06-05 12:46 | EKG ---
Test Reason : Blood Pressure : / mmHG Vent. Rate : 073 BPM Atrial Rate : 073 BPM P-R Int : 138 ms QRS Dur : 078 ms QT Int : 386 ms P-R-T Axes : 069 030 040 degrees QTc Int : 425 ms NORMAL SINUS RHYTHM WITH SINUS ARRHYTHMIA NORMAL ECG WHEN COMPARED WITH ECG OF 25-DEC-2017 20:18, NO SIGNIFICANT CHANGE WAS FOUND Confirmed by VLADIMIR BAIN MD ([id number]) on 06/05/2018 12:46:14 PM Referred By: Confirmed By:VLADIMIR BAIN MD
--- NOTE | 2018-06-05 13:03 | PN ---
[facility] CIWA - CIWA Score Nausea/Vomitin-No Nausea/No Vomiting Muscle Tremors: 4-Moderate,w/Arms Extend Anxiety: 4-Mod. Anxious/Guarded Agitation: 4-Moderately Restless Paroxysmal Sweats: 1-Minimal Palms Moist Orientation: 0-Oriented Tacttile Disturbances: 0-None Auditory Disturbances: 0-None Visual Disturbances: 0-None Headache: 0-None Present CIWA-Ar Total Score: 13 S Progress Note (SOAP) Subjective: ANXIETY,SWEATS,CHILLS-"HOT/COLD FLASHES". REPORTS HX OF GERD AND ON OMEPRAZOLE. Objective: 06/05/18 13:02 Vital Signs 06/05/18 06/05/18 06:19 10:01 Temperature 97.0 F L 97.6 F Pulse Rate 66 66 Respiratory 18 18 Rate Blood Pressure 110/69 117/79 Laboratory Tests 06/05/18 06/05/18 06/05/18 07:00 07:00 07:00 WBC 7.4 RBC 4.44 Hgb 13.7 Hct 40.8 MCV 91.9 MCH 31.0 MCHC 33.7 RDW 16.4 H Plt Count 224 D MPV 9.6 Sodium 143 Potassium 4.2 Chloride 105 Carbon Dioxide 31 Anion Gap 7 L BUN 14 Creatinine 1.2 Creat Clearance w eGFR > 60 Random Glucose 86 D Calcium 8.5 Total Bilirubin 0.4 AST 19 D ALT 30 D Alkaline Phosphatase 72 Total Protein 6.2 L Albumin 3.1 L RPR Titer Nonreactive UA PENDING Assessment: 06/05/18 13:02 WITHDRAWAL SX Plan: CONTINUE DETOX PROTONIX 40 MG PO DAILY, FIRST DOSE TODAY.
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
[2018-06-05] MEDS: THIAMINE HCL 100 MG TABLET (FP) PO SCH (22:17)
[2018-06-05] MEDS: ZOLPIDEM TARTRATE 10 MG TABLET (PARK CARE ONLY) PO PRN (22:20)
[2018-06-06] MEDS: CEPHALEXIN MONOHYDRATE 500 MG CAPSULE (UD) PO SCH ×4 (06:04→23:45)
[2018-06-06] MEDS: chlordiazePOXIDE HCL 25 MG CAPSULE PO SCH ×3 (06:05→17:25)
[2018-06-06] MEDS: RIVAROXABAN 20 MG TABLET PO SCH (09:06)
[2018-06-06] MEDS: PANTOPRAZOLE 40 MG TABLET (FP) PO SCH (10:51)
[2018-06-06] MEDS: PRENATAL VITAMINS W/ FOLIC ACID TABLET (FP) PO SCH (10:51)
[2018-06-06] MEDS: BACITRACIN 0.9 GM PACKET TP SCH ×2 (10:52→22:15)
[2018-06-06] MEDS: amLODIPine BESYLATE 10 MG TABLET (FP) PO SCH (10:52)
[2018-06-06] MEDS: CLOTRIMAZOLE 1% CREAM 15 GM TUBE TP SCH ×2 (10:53→22:17)
[2018-06-06] MEDS: TRIAMCINOLONE ACET 0.1% OINT 80 GM TUBE TP SCH ×2 (10:53→22:16)
[2018-06-06] MEDS: METHYL SALICYLATE/MENTHOL OINT 30 GM TUBE TP SCH ×2 (10:54→22:16)
[2018-06-06] MEDS: NICOTINE 14 MG/24 HOURS TOPICAL PATCH TD SCH (10:54)
--- NOTE | 2018-06-06 11:32 | PN ---
[facility] Progress Note (SOAP) Subjective: SWEATS, ANXIETY, HOT/COLD CHILLS, CHRONIC LEFT KNEE FATIGUE, CHRONIC SKIN RASH AND ON "TIGER BALM AND TRIAMCINOLONE OINTMENTS". Objective: 06/06/18 11:31 Vital Signs 06/06/18 06/06/18 06/06/18 06:30 06:39 09:55 Temperature 97.1 F L 97.5 F L Pulse Rate 64 99 H Respiratory 18 18 18 Rate Blood Pressure 114/75 134/77 Laboratory Tests 06/05/18 06/05/18 06/05/18 07:00 07:00 07:00 WBC 7.4 RBC 4.44 Hgb 13.7 Hct 40.8 MCV 91.9 MCH 31.0 MCHC 33.7 RDW 16.4 H Plt Count 224 D MPV 9.6 Sodium 143 Potassium 4.2 Chloride 105 Carbon Dioxide 31 Anion Gap 7 L BUN 14 Creatinine 1.2 Creat Clearance w eGFR > 60 Random Glucose 86 D Calcium 8.5 Total Bilirubin 0.4 AST 19 D ALT 30 D Alkaline Phosphatase 72 Total Protein 6.2 L Albumin 3.1 L RPR Titer Nonreactive UAPENDING Assessment: 06/06/18 11:31 WITHDRAWAL SX Plan: CONTINUE DETOX
[2018-06-06 14:32] LABS: URINE APPEARANCE CLEAR; URINE BILIRUBIN NEGATIVE (<2.0 mg/dL); URINE COLOR LTYELLOW; URINE GLUCOSE (UA) NEGATIVE (NEGATIVE); URINE KETONE NEGATIVE (NEGATIVE); URINE LEUK ESTERASE NEGATIVE (NEGATIVE); URINE NITRITE NEGATIVE (NEGATIVE); URINE PROTEIN NEGATIVE (NEGATIVE); URINE UROBILINOGEN NEGATIVE mg/dL (0.2-1.0)
[2018-06-06] MEDS: chlordiazePOXIDE 5 MG CAPSULE PO SCH (22:17)
[2018-06-06] MEDS: THIAMINE HCL 100 MG TABLET (FP) PO SCH (22:17)
[2018-06-06] MEDS: ZOLPIDEM TARTRATE 10 MG TABLET (PARK CARE ONLY) PO PRN (22:17)
[2018-06-07] MEDS: chlordiazePOXIDE 5 MG CAPSULE PO SCH (06:07)
[2018-06-07] MEDS: CEPHALEXIN MONOHYDRATE 500 MG CAPSULE (UD) PO SCH (06:07)
[2018-06-07] MEDS: RIVAROXABAN 20 MG TABLET PO SCH (08:52)
[2018-06-07 09:25] VITALS: BP 122/86; PULSE 73; TEMP 98.7
[2018-06-07] MEDS ORDERED: CYCLOBENZAPRINE HCL 5 MG TABLET PO ONE (09:25)
[2018-06-07] MEDS: PRENATAL VITAMINS W/ FOLIC ACID TABLET (FP) PO SCH (10:46)
[2018-06-07] MEDS: BACITRACIN 0.9 GM PACKET TP SCH (10:46)
[2018-06-07] MEDS: PANTOPRAZOLE 40 MG TABLET (FP) PO SCH (10:46)
[2018-06-07] MEDS: METHYL SALICYLATE/MENTHOL OINT 30 GM TUBE TP SCH (10:46)
[2018-06-07] MEDS: amLODIPine BESYLATE 10 MG TABLET (FP) PO SCH (10:46)
[2018-06-07] MEDS: NICOTINE 14 MG/24 HOURS TOPICAL PATCH TD SCH (10:47)
[2018-06-07] MEDS: CLOTRIMAZOLE 1% CREAM 15 GM TUBE TP SCH (10:47)
[2018-06-07] MEDS: TRIAMCINOLONE ACET 0.1% OINT 80 GM TUBE TP SCH (10:47)
[2018-06-07] MEDS ORDERED: chlordiazePOXIDE HCL 10 MG CAPSULE PO SCH ×2 (11:00→23:00)
--- NOTE | 2018-06-07 12:23 | PN ---
[facility] Progress Note (SOAP) Subjective: DETOX COMPLETED. ALERT O X 3. NAD. PT WAS REFERRED TODAY TO [facility]. Objective: 06/07/18 12:21 PLEASE SEE DX BELOW Assessment: 06/07/18 12:22 MEDICALLY STABLE Plan: D/C PT TODAY TO [facility]
--- NOTE | 2018-06-07 12:24 | DS ---
[facility] Detox Discharge Summary Admission Date: 06/04/18 Discharge Date: 06/07/18 - History Present History: Alcohol Dependence Additional Comments: DETOX COMPLETED, ALERT O X 3. NAD. PT TO FOLLOW UP WITH HIS PMD FOR MEDICAL MANAGEMENT NEEDED. PT HAS OWN MEDS. RX FOR KEFLEX 500 MG PO Q6H X 5 DAYS GIVEN TO PT ON D/C TO COMPLETE TX. Pertinent Past History: PLEASE SEE DX BELOW - Physical Exam Results Vital Signs: Vital Signs Temperature 98.7 F 06/07/18 09:24 Pulse Rate 73 06/07/18 09:24 Respiratory Rate 20 06/07/18 09:24 Blood Pressure 122/86 06/07/18 09:24 O2 Sat by Pulse Oximetry (%) Pertinent Admission Physical Exam Findings: WITHDRAWAL SX Laboratory Tests 06/05/18 06/05/18 06/05/18 07:00 07:00 07:00 WBC 7.4 RBC 4.44 Hgb 13.7 Hct 40.8 MCV 91.9 MCH 31.0 MCHC 33.7 RDW 16.4 H Plt Count 224 D MPV 9.6 Sodium 143 Potassium 4.2 Chloride 105 Carbon Dioxide 31 Anion Gap 7 L BUN 14 Creatinine 1.2 Creat Clearance w eGFR > 60 Random Glucose 86 D Calcium 8.5 Total Bilirubin 0.4 AST 19 D ALT 30 D Alkaline Phosphatase 72 Total Protein 6.2 L Albumin 3.1 L Urine Color Urine Appearance Urine pH Ur Specific [place] Urine Protein Urine Glucose (UA) Urine Ketones Urine Blood Urine Nitrite Urine Bilirubin Urine Urobilinogen Ur Leukocyte Esterase RPR Titer Nonreactive 06/05/18 12:10 WBC RBC Hgb Hct MCV MCH MCHC RDW Plt Count MPV Sodium Potassium Chloride Carbon Dioxide Anion Gap BUN Creatinine Creat Clearance w eGFR Random Glucose Calcium Total Bilirubin AST ALT Alkaline Phosphatase Total Protein Albumin Urine Color Ltyellow Urine Appearance Clear Urine pH 7.0 D Ur Specific [place] 1.009 Urine Protein Negative Urine Glucose (UA) Negative Urine Ketones Negative Urine Blood Negative Urine Nitrite Negative Urine Bilirubin Negative Urine Urobilinogen Negative Ur Leukocyte Esterase Negative RPR Titer - Treatment Hospital Course: Detox Protocol Followed, Detoxed Safely, Responded well, Discharged Condition Good, Rehab Referral Accepted Patient has Accepted a Rehab Referral to: [facility] - Medication Discharge Medications: Ambulatory Orders Amlodipine Besylate [Norvasc -] 10 mg PO DAILY 12/25/17 Omeprazole 40 mg PO DAILY 12/25/17 Rivaroxaban [Xarelto -] 20 mg PO DAILY 12/25/17 Clotrimazole [Lotrimin -] 1 applic TP BID 06/04/18 Folic Acid 1 mg PO DAILY 06/04/18 Triamcinolone 0.1% Ointment [Aristocort 0.1% Ointment -] 1 tube TP BID 06/04/18 Zolpidem Tartrate [Ambien] 10 mg PO HS 06/04/18 Omeprazole 20 mg PO DAILY 06/05/18 Cephalexin Monohydrate [Keflex -] 500 mg PO Q6HPO 5 Days capsule 06/07/18 - Diagnosis (1) Alcohol dependence with uncomplicated withdrawal Status: Acute (2) Nicotine dependence Status: Acute Qualifiers: Nicotine product type: cigarettes Substance use status: in withdrawal Qualified Code(s): F17.213 - Nicotine dependence, cigarettes, with withdrawal (3) Weight loss Status: Acute (4) GERD (gastroesophageal reflux disease) Status: Chronic Qualifiers: Esophagitis presence: without esophagitis Qualified Code(s): K21.9 - Gastro -esophageal reflux disease without esophagitis (5) Cellulitis of left lower extremity without foot Status: Acute (6) History of pulmonary embolism Status: Resolved (7) Left tibial fracture Status: Resolved Qualifiers: Encounter type: subsequent encounter (8) Hypertension Status: Chronic Qualifiers: Hypertension type: essential hypertension Qualified Code(s): I10 - Essential (primary) hypertension - AMA Did Patient Leave Against Medical Advice: No
[2018-06-07] MEDS ORDERED: CYCLOBENZAPRINE HCL 10 MG TABLET (FP) PO SCH (14:00)
== END 2018-06-07 11:39 | disposition other institution (70) | DRG 774 ==
LOC: YASAS 14:59 → Y3N 18:37
PROVIDERS: ADMIT Surgery; ATTEND Surgery
PROC: HZ2ZZZZ Detoxification Services for Substance Abuse Treatment (ICD-10-PCS; principal; 2018-06-04)
DX: F10.230 Alcohol dependence with withdrawal, uncomplicated (principal); F14.20 Cocaine dependence, uncomplicated; F12.20 Cannabis dependence, uncomplicated; F19.24 Other psychoactive substance dependence with psychoactive substance-induced mood disorder; I10 Essential (primary) hypertension; K21.9 Gastro-esophageal reflux disease without esophagitis; L03.116 Cellulitis of left lower limb; L85.3 Xerosis cutis; R76.11 Nonspecific reaction to tuberculin skin test without active tuberculosis; Z86.711 Personal history of pulmonary embolism; Z79.01 Long term (current) use of anticoagulants; Z87.19 Personal history of other diseases of the digestive system; Z87.81 Personal history of (healed) traumatic fracture; R63.4 Abnormal weight loss; Z68.29 Body mass index [BMI] 29.0-29.9, adult
CPT/HCPCS: 36415; 71046-TC-FY; 80053; 81003; 85027; 86593; 93005; 93010

== ENCOUNTER 2019-01-01 15:34 | Inpatient (IN) | payer BC ==
[2019-01-01 15:50] VITALS: BMI 25.0
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
[2019-01-01] MEDS ORDERED: MENTHOL/PHENOL 1 EACH UD MM PRN (18:23)
[2019-01-01] MEDS ORDERED: LOPERAMIDE HCL 2 MG CAPSULE PO PRN (18:23)
[2019-01-01] MEDS ORDERED: ACETAMINOPHEN 325 MG TABLET (FP) PO PRN (18:23)
[2019-01-01] MEDS ORDERED: MAGNESIUM HYDROX 2400MG/30ML ORAL SUSPENSION 30 ML CUP PO PRN (18:23)
[2019-01-01] MEDS ORDERED: IBUPROFEN 400 MG TABLET (FP) PO PRN (18:23)
[2019-01-01] MEDS ORDERED: guaiFENesin/D-METHORPHAN HB 10 ML UNIT-DOSE CUPS PO PRN (18:23)
[2019-01-01] MEDS ORDERED: MAGNESIUM CITRATE 300 ML BOTTLE PO PRN (18:23)
[2019-01-01] MEDS ORDERED: chlordiazePOXIDE HCL 25 MG CAPSULE PO PRN (18:23)
[2019-01-01] MEDS ORDERED: MAG HYDROX/AL HYDROX/SIMETH 30 ML UNIT-DOSE CUP PO PRN (18:23)
[2019-01-01] MEDS ORDERED: MELATONIN 5 MG TABLETS PO PRN (22:00)
[2019-01-01] MEDS: THIAMINE HCL 100 MG TABLET (FP) PO SCH (22:42)
[2019-01-01] MEDS: chlordiazePOXIDE HCL 25 MG CAPSULE PO SCH (22:42)
[2019-01-01] MEDS: P-EPHED 60MG/TRIPROLIDI 2.5MG TABLET PO PRN (22:43)
[2019-01-02] MEDS: chlordiazePOXIDE HCL 25 MG CAPSULE PO SCH ×4 (06:31→22:36)
[2019-01-02] MEDS ORDERED: PATIENT'S OWN MEDICATION (NON-FORMULARY) (Omeprazole [Omeprazole] 40 MG) PO SCH (10:00)
[2019-01-02] MEDS: amLODIPine BESYLATE 10 MG TABLET (FP) PO SCH (10:31)
[2019-01-02] MEDS: PANTOPRAZOLE 40 MG TABLET (FP) PO SCH (10:31)
[2019-01-02] MEDS: RIVAROXABAN 20 MG TABLET PO SCH (10:31)
[2019-01-02 10:53] LABS: ALBUMIN 3.4 g/dl (3.4-5.0); ALK PHOS 73 U/L (45-117); ANION GAP 7 MMOL/L (8-16); BILIRUBIN,TOTAL 0.6 mg/dL (0.2-1); BLOOD UREA NITROGEN 16 mg/dL (7-18); CALCIUM 8.8 mg/dL (8.5-10.1); CHLORIDE 104 mmol/L (98-107); CO2 30 mmol/L (21-32); CREATININE 1.1 mg/dL (0.55-1.3); GLUCOSE,RANDOM 87 mg/dL (74-106); POTASSIUM 4.1 mmol/L (3.5-5.1); SGOT/AST 17 U/L (15-37); SGPT/ALT 20 U/L (13-61); SODIUM 140 mmol/L (136-145); TOT PROT 6.6 g/dl (6.4-8.2)
[2019-01-02 10:57] LABS: HEMATOCRIT 43.9 % (35.4-49); HEMOGLOBIN 15.1 GM/dL (11.7-16.9); MCH 31.5 pg (25.7-33.7); MCHC 34.4 g/dl (32.0-35.9); MEAN CELL VOLUME 91.6 fl (80-96); PLATELET COUNT 218 K/MM3 (134-434); RBC 4.79 M/mm3 (4.00-5.60); RDW 15.1 % (11.9-15.9)
[2019-01-02] MEDS: PRENATAL VITAMINS W/ FOLIC ACID TABLET (FP) PO SCH (11:23)
--- NOTE | 2019-01-02 11:44 | PN ---
[facility] CIWA - CIWA Score Nausea/Vomitin-No Nausea/No Vomiting Muscle Tremors: 3 Anxiety: 3 Agitation: 3 Paroxysmal Sweats: 2 Orientation: 0-Oriented Tacttile Disturbances: 0-None Auditory Disturbances: 0-None Visual Disturbances: 0-None Headache: 0-None Present CIWA-Ar Total Score: 11 S Progress Note (SOAP) Subjective: sweats tired shakes interrupted sleep Objective: 01/02/19 11:44 Vital Signs Temperature 97.9 F 01/02/19 09:46 Pulse Rate 77 01/02/19 09:46 Respiratory Rate 18 01/02/19 09:46 Blood Pressure 111/76 01/02/19 09:46 O2 Sat by Pulse Oximetry (%) Laboratory Tests 01/02/19 01/02/19 07:00 07:00 WBC 7.0 RBC 4.79 Hgb 15.1 Hct 43.9 MCV 91.6 MCH 31.5 MCHC 34.4 RDW 15.1 Plt Count 218 MPV 10.0 Sodium 140 Potassium 4.1 Chloride 104 Carbon Dioxide 30 Anion Gap 7 L BUN 16 Creatinine 1.1 Creat Clearance w eGFR > 60 Random Glucose 87 Calcium 8.8 Total Bilirubin 0.6 AST 17 ALT 20 Alkaline Phosphatase 73 Total Protein 6.6 Albumin 3.4 aaox3 ambulating no acute distress Assessment: 01/02/19 11:46 withdrawal sx Plan: continue detox increase fluids
[2019-01-02] MEDS: THIAMINE HCL 100 MG TABLET (FP) PO SCH (22:36)
[2019-01-02] MEDS: P-EPHED 60MG/TRIPROLIDI 2.5MG TABLET PO PRN (22:38)
[2019-01-03] MEDS: chlordiazePOXIDE HCL 25 MG CAPSULE PO SCH ×3 (06:06→17:47)
[2019-01-03] MEDS: PRENATAL VITAMINS W/ FOLIC ACID TABLET (FP) PO SCH (10:45)
[2019-01-03] MEDS: PANTOPRAZOLE 40 MG TABLET (FP) PO SCH (10:45)
[2019-01-03] MEDS: RIVAROXABAN 20 MG TABLET PO SCH (10:45)
[2019-01-03] MEDS: amLODIPine BESYLATE 10 MG TABLET (FP) PO SCH (10:45)
--- NOTE | 2019-01-03 11:53 | PN ---
[facility] CIWA - CIWA Score Nausea/Vomitin-No Nausea/No Vomiting Muscle Tremors: 2 Anxiety: 3 Agitation: 3 Paroxysmal Sweats: 3 Orientation: 0-Oriented Tacttile Disturbances: 0-None Auditory Disturbances: 0-None Visual Disturbances: 0-None Headache: 0-None Present CIWA-Ar Total Score: 11 S Progress Note (SOAP) Subjective: restless sweats shakes irritable Objective: 01/03/19 11:52 Vital Signs Temperature 97.9 F 01/03/19 09:31 Pulse Rate 102 H 01/03/19 09:31 Respiratory Rate 18 01/03/19 09:31 Blood Pressure 129/80 01/03/19 09:31 O2 Sat by Pulse Oximetry (%) Laboratory Tests 01/02/19 01/02/19 01/02/19 07:00 07:00 07:00 WBC 7.0 RBC 4.79 Hgb 15.1 Hct 43.9 MCV 91.6 MCH 31.5 MCHC 34.4 RDW 15.1 Plt Count 218 MPV 10.0 Sodium 140 Potassium 4.1 Chloride 104 Carbon Dioxide 30 Anion Gap 7 L BUN 16 Creatinine 1.1 Creat Clearance w eGFR > 60 Random Glucose 87 Calcium 8.8 Total Bilirubin 0.6 AST 17 ALT 20 Alkaline Phosphatase 73 Total Protein 6.6 Albumin 3.4 RPR Titer Nonreactive aaox3 ambulating no acute distress Assessment: 01/03/19 11:52 withdrawal sx Plan: continue detox increase fluids
[2019-01-03] MEDS: THIAMINE HCL 100 MG TABLET (FP) PO SCH (23:13)
[2019-01-03] MEDS: chlordiazePOXIDE 5 MG CAPSULE PO SCH (23:13)
[2019-01-04] MEDS: chlordiazePOXIDE 5 MG CAPSULE PO SCH ×3 (05:55→17:59)
[2019-01-04] MEDS: RIVAROXABAN 20 MG TABLET PO SCH (10:25)
[2019-01-04] MEDS: PRENATAL VITAMINS W/ FOLIC ACID TABLET (FP) PO SCH (10:25)
[2019-01-04] MEDS: amLODIPine BESYLATE 10 MG TABLET (FP) PO SCH (10:25)
[2019-01-04] MEDS: PANTOPRAZOLE 40 MG TABLET (FP) PO SCH (10:25)
--- NOTE | 2019-01-04 15:15 | PN ---
[facility] Progress Note (SOAP) Subjective: without complaints today- would like to go to rehab O: Vital Signs - 24 hr 01/03/19 01/03/19 01/04/19 18:05 22:53 00:30 Temperature 98 F 97.9 F Pulse Rate 94 H 86 Respiratory 16 20 18 Rate Blood Pressure 136/85 147/88 01/04/19 01/04/19 01/04/19 03:30 08:55 09:55 Temperature 97.9 F 99 F Pulse Rate 81 95 H Respiratory 18 18 18 Rate Blood Pressure 138/94 146/86 01/04/19 13:53 Temperature 97.3 F L Pulse Rate 85 Respiratory 18 Rate Blood Pressure 141/85 Laboratory Tests 01/02/19 01/02/19 01/02/19 07:00 07:00 07:00 WBC 7.0 RBC 4.79 Hgb 15.1 Hct 43.9 MCV 91.6 MCH 31.5 MCHC 34.4 RDW 15.1 Plt Count 218 MPV 10.0 Sodium 140 Potassium 4.1 Chloride 104 Carbon Dioxide 30 Anion Gap 7 L BUN 16 Creatinine 1.1 Creat Clearance w eGFR > 60 Random Glucose 87 Calcium 8.8 Total Bilirubin 0.6 AST 17 ALT 20 Alkaline Phosphatase 73 Total Protein 6.6 Albumin 3.4 RPR Titer Nonreactive a/p: continue detox protocol: pt will go to rehab on sunday- the day after tomorrow.
[2019-01-04] MEDS: chlordiazePOXIDE HCL 10 MG CAPSULE PO SCH (23:25)
[2019-01-04] MEDS: THIAMINE HCL 100 MG TABLET (FP) PO SCH (23:25)
[2019-01-05] MEDS: chlordiazePOXIDE HCL 10 MG CAPSULE PO SCH ×2 (06:14→10:19)
[2019-01-05 09:43] VITALS: BP 135/88; PULSE 89; TEMP 99.1
[2019-01-05] MEDS: amLODIPine BESYLATE 10 MG TABLET (FP) PO SCH (10:19)
[2019-01-05] MEDS: RIVAROXABAN 20 MG TABLET PO SCH (10:19)
[2019-01-05] MEDS: PRENATAL VITAMINS W/ FOLIC ACID TABLET (FP) PO SCH (10:19)
[2019-01-05] MEDS: PANTOPRAZOLE 40 MG TABLET (FP) PO SCH (10:19)
--- NOTE | 2019-01-05 14:12 | DS ---
[facility] Detox Discharge Summary Admission Date: 01/01/19 Discharge Date: 01/05/19 - History Present History: Alcohol Dependence, Cannabis Dependence, Cocaine Dependence - Physical Exam Results Vital Signs: Vital Signs Temperature 99.1 F 01/05/19 09:43 Pulse Rate 89 01/05/19 09:43 Respiratory Rate 18 01/05/19 09:43 Blood Pressure 135/88 01/05/19 09:43 O2 Sat by Pulse Oximetry (%) - Treatment Hospital Course: Detox Protocol Followed, Detoxed Safely, Responded well, Discharged Condition Good, Rehab Referral Accepted Patient has Accepted a Rehab Referral to: PATIENT D/C TO [facility] AND HAS MEDS IN HIS BELONGINS - Medication Discharge Medications: Ambulatory Orders Amlodipine Besylate [Norvasc -] 10 mg PO DAILY 12/25/17 Omeprazole 40 mg PO DAILY 12/25/17 Rivaroxaban [Xarelto -] 20 mg PO DAILY 12/25/17 - Diagnosis (1) Hx of pulmonary embolus Status: Chronic (2) Alcohol dependence Status: Chronic Qualifiers: Substance use status: uncomplicated Qualified Code(s): F10.20 - Alcohol dependence, uncomplicated (3) Cannabis dependence Status: Chronic (4) Cocaine dependence Status: Chronic Qualifiers: Substance use status: uncomplicated Qualified Code(s): F14.20 - Cocaine dependence, uncomplicated (5) Nicotine dependence Status: Chronic Qualifiers: Nicotine product type: cigarettes Substance use status: in withdrawal Qualified Code(s): F17.213 - Nicotine dependence, cigarettes, with withdrawal - AMA Did Patient Leave Against Medical Advice: No
== END 2019-01-05 11:12 | disposition home or self-care (01) | DRG 774 ==
LOC: YASAS 15:34 → Y6N 18:56
PROVIDERS: ADMIT Surgery; ATTEND Surgery
PROC: HZ2ZZZZ Detoxification Services for Substance Abuse Treatment (ICD-10-PCS; principal; 2019-01-01)
DX: F10.230 Alcohol dependence with withdrawal, uncomplicated (principal); F14.20 Cocaine dependence, uncomplicated; F12.20 Cannabis dependence, uncomplicated; F17.213 Nicotine dependence, cigarettes, with withdrawal; F31.9 Bipolar disorder, unspecified; I10 Essential (primary) hypertension; K21.9 Gastro-esophageal reflux disease without esophagitis; Z86.711 Personal history of pulmonary embolism; Z79.01 Long term (current) use of anticoagulants; Z91.14 Patient's other noncompliance with medication regimen
CPT/HCPCS: 36415; 80053; 85027; 86593

== ENCOUNTER 2019-07-22 14:50 | Inpatient (IN) | payer BC ==
[2019-07-22 20:08] VITALS: BMI 25.2
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
[2019-07-22] MEDS ORDERED: MAGNESIUM CITRATE 300 ML BOTTLE PO PRN (22:08)
[2019-07-22] MEDS ORDERED: guaiFENesin 200 MG/10 ML 10 ML UNIT-DOSE CUPS PO PRN (22:08)
[2019-07-22] MEDS ORDERED: BISMUTH SUBSALICYLATE 524 MG/30 ML UD PO PRN (22:08)
[2019-07-22] MEDS ORDERED: DICYCLOMINE HCL 10 MG CAPSULE PO PRN (22:08)
[2019-07-22] MEDS ORDERED: ACETAMINOPHEN 325 MG TABLET (FP) PO PRN ×2 (22:08)
[2019-07-22] MEDS ORDERED: MAGNESIUM HYDROX 2400MG/30ML ORAL SUSPENSION 30 ML CUP PO PRN (22:08)
[2019-07-22] MEDS ORDERED: NICOTINE POLACRILEX 2 MG GUM BUC PRN (22:08)
[2019-07-22] MEDS ORDERED: ONDANSETRON *ODT* 4 MG TABLET SL PRN (22:08)
[2019-07-22] MEDS ORDERED: P-EPHED 60MG/TRIPROLIDI 2.5MG TABLET PO PRN (22:08)
[2019-07-22] MEDS ORDERED: IBUPROFEN 400 MG TABLET (FP) PO PRN (22:08)
[2019-07-22] MEDS ORDERED: METHOCARBAMOL 500 MG TABLET PO PRN (22:08)
[2019-07-22] MEDS ORDERED: MENTHOL/PHENOL 1 EACH UD MM PRN (22:08)
[2019-07-22] MEDS ORDERED: MAG HYDROX/AL HYDROX/SIMETH 30 ML UNIT-DOSE CUP PO PRN (22:08)
[2019-07-22] MEDS ORDERED: hydrOXYzine PAMOATE 25 MG CAPSULE (FP) PO PRN (22:08)
[2019-07-22] MEDS ORDERED: chlordiazePOXIDE HCL 25 MG CAPSULE PO PRN (22:08)
[2019-07-23] MEDS: chlordiazePOXIDE HCL 25 MG CAPSULE PO SCH ×5 (06:41→23:06)
[2019-07-23] MEDS: NICOTINE 21 MG/24 HOURS TOPICAL PATCH TD SCH (10:08)
[2019-07-23] MEDS: PRENATAL VITAMINS W/ FOLIC ACID TABLET (FP) PO SCH (10:09)
[2019-07-23] MEDS: amLODIPine BESYLATE 10 MG TABLET (FP) PO SCH (10:09)
[2019-07-23] MEDS: PANTOPRAZOLE 20 MG TABLET (FP) PO SCH (10:09)
--- NOTE | 2019-07-23 10:16 | PN ---
S CIWA - CIWA Score Nausea/Vomitin Muscle Tremors: 2 Anxiety: 2 Agitation: 2 Paroxysmal Sweats: No Perspiration Orientation: 0-Oriented Tacttile Disturbances: 0-None Auditory Disturbances: 0-None Visual Disturbances: 0-None Headache: 2-Mild CIWA-Ar Total Score: 10 BHS Progress Note (SOAP) Subjective: alert,irritable,anxious,interrupted sleep,tremor Objective: 07/23/19 10:15 Vital Signs Temperature 96.9 F L 07/23/19 09:08 Pulse Rate 65 07/23/19 09:08 Respiratory Rate 18 07/23/19 09:08 Blood Pressure 147/83 07/23/19 09:08 O2 Sat by Pulse Oximetry (%) labs pending Assessment: 07/23/19 10:16 withdrawal symptom Plan: continue detox librium regimen
--- NOTE | 2019-07-23 11:46 | CONSULT ---
[facility] Psychiatric Consult - Data Date of interview: 07/23/19 Psychiatric History: Patient was approached at bedside. He got upset saying:" I was sleeping and you woke me up by calling my name. I don't want to talk to you "
[2019-07-23 12:31] LABS: HEMATOCRIT 43.2 % (35.4-49); HEMOGLOBIN 14.5 GM/dL (11.7-16.9); MCH 32.5 pg (25.7-33.7); MCHC 33.6 g/dl (32.0-35.9); MEAN CELL VOLUME 96.7 fl (80-96); MEAN PLT VOLUME 10.1 fl (7.5-11.1); PLATELET COUNT 206 K/MM3 (134-434); RBC 4.47 M/mm3 (4.00-5.60); RDW 14.3 % (11.9-15.9); WHITE BLOOD COUNT 6.5 K/mm3 (4.0-10.0)
[2019-07-23 12:39] LABS: ALBUMIN 3.4 g/dl (3.4-5.0); BILIRUBIN,TOTAL 0.6 mg/dL (0.2-1); BLOOD UREA NITROGEN 16.3 mg/dL (7-18); TOT PROT 6.4 g/dl (6.4-8.2)
[2019-07-23 17:19] LABS: PH,URINE 5.5 (5.0-8.0); URINE APPEARANCE Error; URINE BILIRUBIN NEGATIVE (NEGATIVE); URINE COLOR YELLOW; URINE GLUCOSE (UA) NEGATIVE (NEGATIVE); URINE KETONE NEGATIVE (NEGATIVE); URINE LEUK ESTERASE NEGATIVE (NEGATIVE); URINE NITRITE NEGATIVE (NEGATIVE); URINE PROTEIN NEGATIVE (NEGATIVE)
[2019-07-23] MEDS: THIAMINE HCL 100 MG TABLET (FP) PO SCH (22:06)
[2019-07-24] MEDS: chlordiazePOXIDE HCL 25 MG CAPSULE PO SCH ×3 (10:06→23:06)
[2019-07-24] MEDS: amLODIPine BESYLATE 10 MG TABLET (FP) PO SCH (10:06)
[2019-07-24] MEDS: PANTOPRAZOLE 20 MG TABLET (FP) PO SCH (10:06)
[2019-07-24] MEDS: PRENATAL VITAMINS W/ FOLIC ACID TABLET (FP) PO SCH (10:06)
[2019-07-24] MEDS: NICOTINE 21 MG/24 HOURS TOPICAL PATCH TD SCH (10:06)
--- NOTE | 2019-07-24 10:23 | PN ---
[facility] CIWA - CIWA Score Nausea/Vomitin-Mild Nausea/No Vomiting Muscle Tremors: 2 Anxiety: 3 Agitation: 3 Paroxysmal Sweats: 1-Minimal Palms Moist Orientation: 0-Oriented Tacttile Disturbances: 0-None Auditory Disturbances: 0-None Visual Disturbances: 0-None Headache: 1-Very Mild CIWA-Ar Total Score: 11 S Progress Note (SOAP) Subjective: alert,irritable,anxious,interrupted sleep,tremor Objective: 07/24/19 10:21 Vital Signs Temperature 98.1 F 07/24/19 09:18 Pulse Rate 112 H 07/24/19 09:18 Respiratory Rate 20 07/24/19 09:18 Blood Pressure 142/73 07/24/19 09:18 O2 Sat by Pulse Oximetry (%) 07/24/19 10:21 Laboratory Last Values WBC 6.5 K/mm3 (4.0-10.0) 07/23/19 08:30 RBC 4.47 M/mm3 (4.00-5.60) 07/23/19 08:30 Hgb 14.5 GM/dL (11.7-16.9) 07/23/19 08:30 Hct 43.2 % (35.4-49) 07/23/19 08:30 MCV 96.7 fl (80-96) H 07/23/19 08:30 MCH 32.5 pg (25.7-33.7) 07/23/19 08:30 MCHC 33.6 g/dl (32.0-35.9) 07/23/19 08:30 RDW 14.3 % (11.9-15.9) 07/23/19 08:30 Plt Count 206 K/MM3 (134-434) 07/23/19 08:30 MPV 10.1 fl (7.5-11.1) 07/23/19 08:30 Sodium 141 mmol/L (136-145) 07/23/19 08:30 Potassium 4.0 mmol/L (3.5-5.1) 07/23/19 08:30 Chloride 104 mmol/L (98-107) 07/23/19 08:30 Carbon Dioxide 31 mmol/L (21-32) 07/23/19 08:30 Anion Gap 6 MMOL/L (8-16) L 07/23/19 08:30 BUN 16.3 mg/dL (7-18) 07/23/19 08:30 Creatinine 1.0 mg/dL (0.55-1.3) 07/23/19 08:30 Est GFR (CKD-EPI)AfAm 102.69 07/23/19 08:30 Est GFR (CKD-EPI)NonAf 88.61 07/23/19 08:30 Random Glucose 104 mg/dL (74-106) 07/23/19 08:30 Calcium 9.0 mg/dL (8.5-10.1) 07/23/19 08:30 Total Bilirubin 0.6 mg/dL (0.2-1) 07/23/19 08:30 AST 50 U/L (15-37) H 07/23/19 08:30 ALT 42 U/L (13-61) 07/23/19 08:30 Alkaline Phosphatase 58 U/L (45-117) 07/23/19 08:30 Total Protein 6.4 g/dl (6.4-8.2) 07/23/19 08:30 Albumin 3.4 g/dl (3.4-5.0) 07/23/19 08:30 Urine Color Yellow 07/23/19 14:15 Urine Appearance Error 07/23/19 14:15 Urine pH 5.5 (5.0-8.0) D 07/23/19 14:15 Ur Specific [place] 1.022 (1.010-1.035) 07/23/19 14:15 Urine Protein Negative (NEGATIVE) 07/23/19 14:15 Urine Glucose (UA) Negative (NEGATIVE) 07/23/19 14:15 Urine Ketones Negative (NEGATIVE) 07/23/19 14:15 Urine Blood Negative (NEGATIVE) 07/23/19 14:15 Urine Nitrite Negative (NEGATIVE) 07/23/19 14:15 Urine Bilirubin Negative (NEGATIVE) 07/23/19 14:15 Urine Urobilinogen 1.0 mg/dL (0.2-1.0) 07/23/19 14:15 Ur Leukocyte Esterase Negative (NEGATIVE) 07/23/19 14:15 Assessment: 07/24/19 10:22 withdrawal symptom Plan: continue detox librium regimen
[2019-07-24] MEDS: THIAMINE HCL 100 MG TABLET (FP) PO SCH (23:07)
[2019-07-25] MEDS ORDERED: chlordiazePOXIDE HCL 10 MG CAPSULE PO PRN
[2019-07-25] MEDS: chlordiazePOXIDE HCL 10 MG CAPSULE PO SCH ×4 (07:06→22:58)
[2019-07-25] MEDS: NICOTINE 21 MG/24 HOURS TOPICAL PATCH TD SCH (10:18)
[2019-07-25] MEDS: PRENATAL VITAMINS W/ FOLIC ACID TABLET (FP) PO SCH (10:21)
[2019-07-25] MEDS: amLODIPine BESYLATE 10 MG TABLET (FP) PO SCH (10:22)
[2019-07-25] MEDS: PANTOPRAZOLE 20 MG TABLET (FP) PO SCH (10:22)
--- NOTE | 2019-07-25 11:16 | PN ---
[facility] Progress Note Note: pt approached the nurses station requesting to find out his day of discharge...pt was also stating that someone came to his room this morning.. he was in deep sleep and woke him up.. stating I am your counselor and I need to know where you are interested in going after detox. Pt states the only thing he remembers is saying [facility] When film writer opened his chart pt was surprised to know that there were other places that were written in there that he never agreed or conversed about with any one. Pt was then speaking with Melina the counselor who asked where he wanted to go pt states [facility] but that he never mentioned the other places that were in his chart. counselor in turn state that places are put in as alternative..but pt was baffled and states why are you putting places that i never agreed to go or i never even spoke about with you or any counselor? pt appeared angry and upset. Pt later asked to speak with film writer and states that he felt upset and states I not stupid and I'm not a fool and it is very unprofessional of the way i was just treated. Pt was asked if he wanted to file a complaint and was told that the clinical tank shop supervisor was not here today so he asked to speak with a higher up like a director or patient relation. film writer then called Jose director of the counselor but she states she will try her best to see the patient with his concerns however she will be in a meeting but will try. Savings Counselor advised him that the director was made aware of his grievance and will try to see him today however if she gets stuck in the meeting, she will try to see him the next day. pt in agreement.
--- NOTE | 2019-07-25 11:24 | PN ---
[facility] CIWA - CIWA Score Nausea/Vomitin-Mild Nausea/No Vomiting Muscle Tremors: 1-None Visible, but [place] Anxiety: 2 Agitation: 2 Paroxysmal Sweats: No Perspiration Orientation: 0-Oriented Tacttile Disturbances: 1-Very Mild Itch/Numbness Auditory Disturbances: 0-None Visual Disturbances: 0-None Headache: 1-Very Mild CIWA-Ar Total Score: 8 BHS Progress Note (SOAP) Subjective: alert,irritable,anxious,interrupted sleep, Objective: 07/25/19 11:21 Vital Signs Temperature 98.6 F 07/25/19 09:24 Pulse Rate 83 07/25/19 09:24 Respiratory Rate 18 07/25/19 09:24 Blood Pressure 118/79 07/25/19 09:24 O2 Sat by Pulse Oximetry (%) Assessment: 07/25/19 11:23 withdrawal symptom Plan: continue detox ,librium regimen
[2019-07-25] MEDS: THIAMINE HCL 100 MG TABLET (FP) PO SCH (22:58)
[2019-07-26] MEDS: MELATONIN 5 MG TABLETS PO PRN (02:44)
[2019-07-26] MEDS: chlordiazePOXIDE HCL 10 MG CAPSULE PO SCH ×2 (07:38→17:36)
[2019-07-26] MEDS: NICOTINE 21 MG/24 HOURS TOPICAL PATCH TD SCH (10:18)
[2019-07-26] MEDS: amLODIPine BESYLATE 10 MG TABLET (FP) PO SCH (10:18)
[2019-07-26] MEDS: PRENATAL VITAMINS W/ FOLIC ACID TABLET (FP) PO SCH (10:18)
[2019-07-26] MEDS: PANTOPRAZOLE 20 MG TABLET (FP) PO SCH (10:21)
--- NOTE | 2019-07-26 11:02 | PN ---
S CIWA - CIWA Score Nausea/Vomitin-No Nausea/No Vomiting Muscle Tremors: None Anxiety: 2 Agitation: 0-Normal Activity Paroxysmal Sweats: 2 Orientation: 0-Oriented Tacttile Disturbances: 0-None Auditory Disturbances: 0-None Visual Disturbances: 0-None Headache: 1-Very Mild CIWA-Ar Total Score: 5 S Progress Note (SOAP) Subjective: c/o mild headache, sweats, and anxiety. Objective: 07/26/19 11:01 Vital Signs 07/26/19 07/26/19 07/26/19 03:30 06:00 09:09 Temperature 97.3 F L 97.9 F Pulse Rate 88 96 H Respiratory 18 18 18 Rate Blood Pressure 144/70 128/73 Lab Results WBC 6.5 K/mm3 (4.0-10.0) 07/23/19 08:30 RBC 4.47 M/mm3 (4.00-5.60) 07/23/19 08:30 Hgb 14.5 GM/dL (11.7-16.9) 07/23/19 08:30 Hct 43.2 % (35.4-49) 07/23/19 08:30 MCV 96.7 fl (80-96) H 07/23/19 08:30 MCHC 33.6 g/dl (32.0-35.9) 07/23/19 08:30 RDW 14.3 % (11.9-15.9) 07/23/19 08:30 Plt Count 206 K/MM3 (134-434) 07/23/19 08:30 Sodium 141 mmol/L (136-145) 07/23/19 08:30 Potassium 4.0 mmol/L (3.5-5.1) 07/23/19 08:30 Chloride 104 mmol/L (98-107) 07/23/19 08:30 Carbon Dioxide 31 mmol/L (21-32) 07/23/19 08:30 Anion Gap 6 MMOL/L (8-16) L 07/23/19 08:30 BUN 16.3 mg/dL (7-18) 07/23/19 08:30 Creatinine 1.0 mg/dL (0.55-1.3) 07/23/19 08:30 Random Glucose 104 mg/dL (74-106) 07/23/19 08:30 Calcium 9.0 mg/dL (8.5-10.1) 07/23/19 08:30 Labs noted. Assessment: 07/26/19 11:02 AOX3, in no acute distress. Full ROM, ambulating in the unit. Withdrawal symptoms. Plan: continue detox.
[2019-07-26] MEDS: THIAMINE HCL 100 MG TABLET (FP) PO SCH (22:49)
[2019-07-27] MEDS ORDERED: chlordiazePOXIDE HCL 10 MG CAPSULE PO ONE (05:00)
[2019-07-27] MEDS: amLODIPine BESYLATE 10 MG TABLET (FP) PO SCH (10:42)
[2019-07-27] MEDS: PRENATAL VITAMINS W/ FOLIC ACID TABLET (FP) PO SCH (10:42)
[2019-07-27] MEDS: PANTOPRAZOLE 20 MG TABLET (FP) PO SCH (10:43)
[2019-07-27] MEDS: NICOTINE 21 MG/24 HOURS TOPICAL PATCH TD SCH (10:43)
--- NOTE | 2019-07-27 14:57 | PN ---
S CIWA - CIWA Score Nausea/Vomitin-No Nausea/No Vomiting Muscle Tremors: None Anxiety: 4-Mod. Anxious/Guarded Agitation: 0-Normal Activity Paroxysmal Sweats: No Perspiration Orientation: 0-Oriented Tacttile Disturbances: 0-None Auditory Disturbances: 0-None Visual Disturbances: 0-None Headache: 0-None Present CIWA-Ar Total Score: 4 BHS Progress Note (SOAP) Subjective: Feels fine, medication working. Patient stated he is scheduled to go to [facility] tomorrow and requesting his discharge date be changed from today to tomorrow as he is afraid of relapsing if leave today. Objective: 07/27/19 14:55 Last Vital Signs Temp Pulse Resp BP Pulse Ox 98.4 F 77 18 123/72 07/27/19 13:06 07/27/19 13:06 07/27/19 13:06 07/27/19 13:06 Laboratory Tests 07/23/19 07/23/19 07/23/19 08:30 08:30 14:15 WBC 6.5 RBC 4.47 Hgb 14.5 Hct 43.2 MCV 96.7 H MCH 32.5 MCHC 33.6 RDW 14.3 Plt Count 206 MPV 10.1 Sodium 141 Potassium 4.0 Chloride 104 Carbon Dioxide 31 Anion Gap 6 L BUN 16.3 Creatinine 1.0 Est GFR (CKD-EPI)AfAm 102.69 Est GFR (CKD-EPI)NonAf 88.61 Random Glucose 104 Calcium 9.0 Total Bilirubin 0.6 AST 50 H ALT 42 Alkaline Phosphatase 58 Total Protein 6.4 Albumin 3.4 Urine Color Yellow Urine Appearance Error Urine pH 5.5 D Ur Specific [place] 1.022 Urine Protein Negative Urine Glucose (UA) Negative Urine Ketones Negative Urine Blood Negative Urine Nitrite Negative Urine Bilirubin Negative Urine Urobilinogen 1.0 Ur Leukocyte Esterase Negative Labs reviewed Assessment: 07/27/19 14:56 Withdrawal sxs Plan: Continue detox Encouraged PO water intake Discharge rescheduled for tomorrow morning Patient scheduled for admission to [facility] tomorrow
[2019-07-27] MEDS: MELATONIN 5 MG TABLETS PO PRN (22:34)
[2019-07-27] MEDS: THIAMINE HCL 100 MG TABLET (FP) PO SCH (22:34)
--- NOTE | 2019-07-28 08:57 | DS ---
[facility] Detox Discharge Summary Admission Date: 07/22/19 Discharge Date: 07/28/19 - History Present History: Alcohol Dependence, Cannabis Dependence, Cocaine Dependence - Physical Exam Results Vital Signs: Vital Signs Temperature 97.7 F 07/28/19 06:52 Pulse Rate 72 07/28/19 06:52 Respiratory Rate 18 07/28/19 06:52 Blood Pressure 107/67 07/28/19 06:52 O2 Sat by Pulse Oximetry (%) Pertinent Admission Physical Exam Findings: pt arrived in withdrawals Laboratory Tests 07/23/19 07/23/19 07/23/19 08:30 08:30 14:15 WBC 6.5 RBC 4.47 Hgb 14.5 Hct 43.2 MCV 96.7 H MCH 32.5 MCHC 33.6 RDW 14.3 Plt Count 206 MPV 10.1 Sodium 141 Potassium 4.0 Chloride 104 Carbon Dioxide 31 Anion Gap 6 L BUN 16.3 Creatinine 1.0 Est GFR (CKD-EPI)AfAm 102.69 Est GFR (CKD-EPI)NonAf 88.61 Random Glucose 104 Calcium 9.0 Total Bilirubin 0.6 AST 50 H ALT 42 Alkaline Phosphatase 58 Total Protein 6.4 Albumin 3.4 Urine Color Yellow Urine Appearance Error Urine pH 5.5 D Ur Specific [place] 1.022 Urine Protein Negative Urine Glucose (UA) Negative Urine Ketones Negative Urine Blood Negative Urine Nitrite Negative Urine Bilirubin Negative Urine Urobilinogen 1.0 Ur Leukocyte Esterase Negative today pt is aaox3 ambulating no s/s of withdrawals - Treatment Hospital Course: Detox Protocol Followed, Detoxed Safely, Responded well, Discharged Condition Good, Rehab Referral Accepted Patient has Accepted a Rehab Referral to: pt referred to [facility] inpatient rehab - Medication Discharge Medications: Ambulatory Orders Amlodipine Besylate [Norvasc -] 10 mg PO DAILY 12/25/17 Omeprazole 40 mg PO DAILY 12/25/17 - Diagnosis (1) Alcohol dependence with uncomplicated withdrawal Current Visit: Yes Status: Acute (2) Bipolar disorder Current Visit: Yes Status: Chronic (3) Cannabis dependence Current Visit: Yes Status: Chronic (4) Cocaine dependence Current Visit: Yes Status: Chronic Qualifiers: Substance use status: uncomplicated Qualified Code(s): F14.20 - Cocaine dependence, uncomplicated (5) Depression Current Visit: Yes Status: Chronic Qualifiers: Depression Type: dysthymia Qualified Code(s): F34.1 - Dysthymic disorder (6) GERD (gastroesophageal reflux disease) Current Visit: Yes Status: Chronic Qualifiers: Esophagitis presence: without esophagitis Qualified Code(s): K21.9 - Gastro -esophageal reflux disease without esophagitis (7) Hypertension Current Visit: Yes Status: Chronic Qualifiers: Hypertension type: essential hypertension Qualified Code(s): I10 - Essential (primary) hypertension (8) Nicotine dependence Current Visit: Yes Status: Chronic Qualifiers: Nicotine product type: cigarettes Substance use status: uncomplicated Qualified Code(s): F17.210 - Nicotine dependence, cigarettes, uncomplicated (9) PPD positive, treated Current Visit: Yes Status: Chronic (10) Drug-induced mood disorder Current Visit: Yes Status: Suspected (11) Weight loss Current Visit: No Status: Acute (12) Bipolar disorder Current Visit: No Status: Chronic (13) Dry skin dermatitis Current Visit: No Status: Chronic (14) Hx of pulmonary embolus Current Visit: No Status: Chronic - AMA Did Patient Leave Against Medical Advice: No
[2019-07-28] MEDS: PANTOPRAZOLE 20 MG TABLET (FP) PO SCH (09:24)
[2019-07-28] MEDS: amLODIPine BESYLATE 10 MG TABLET (FP) PO SCH (09:24)
[2019-07-28] MEDS: PRENATAL VITAMINS W/ FOLIC ACID TABLET (FP) PO SCH (09:26)
[2019-07-28] MEDS: NICOTINE 21 MG/24 HOURS TOPICAL PATCH TD SCH (09:30)
[2019-07-28 13:22] VITALS: BP 120/64; PULSE 77; TEMP 98.1
== END 2019-07-28 14:08 | disposition home or self-care (01) | DRG 774 ==
LOC: YASAS 14:50 → Y6N 23:13
PROVIDERS: ADMIT Surgery; ATTEND Surgery
PROC: HZ2ZZZZ Detoxification Services for Substance Abuse Treatment (ICD-10-PCS; principal; 2019-07-22)
DX: F10.230 Alcohol dependence with withdrawal, uncomplicated (principal); F14.20 Cocaine dependence, uncomplicated; F12.20 Cannabis dependence, uncomplicated; F17.210 Nicotine dependence, cigarettes, uncomplicated; F31.9 Bipolar disorder, unspecified; F34.1 Dysthymic disorder; F19.24 Other psychoactive substance dependence with psychoactive substance-induced mood disorder; I10 Essential (primary) hypertension; K21.9 Gastro-esophageal reflux disease without esophagitis; R76.11 Nonspecific reaction to tuberculin skin test without active tuberculosis; R63.4 Abnormal weight loss; L85.3 Xerosis cutis; Z91.14 Patient's other noncompliance with medication regimen; Z86.711 Personal history of pulmonary embolism; Z59.0 Homelessness
CPT/HCPCS: 36415; 71046-TC-FY; 80053; 81003; 85027